=== PATIENT | female | born 1990 | race African-American/Black ===

== ENCOUNTER 2023-04-07 01:57 | Emergency (ER) | payer OTHER, SELFPAY ==
--- NOTE | 2023-04-07 02:10 | ED.ALCOHOL ---
HPI - Alcohol General Chief Complaint: ETOH/Substance Use Stated Complaint: Etoh Time Seen by Provider: 04/07/23 02:04 Source: patient Mode of arrival: EMS Limitations: no limitations History of Present Illness HPI narrative: Patient comes to the emergency room via EMS for alcohol intoxication. According to the patient, she was walking home, patient found her walking and called EMS and they asked her to come to the emergency room to get ?checked out? patient came voluntarily. On arrival, patient states that she feels well, admits to drinking alcohol, denies drug use, denies any injuries, no falls. Patient states she feels well and declines any further medical tests or treatment. Related Data Allergies Allergy/AdvReac Type Severity Reaction Status Date / Time latex [LATEX] Allergy Unknown RASH Unverified 06/25/20 15:59 latex Allergy Unknown hives Uncoded 03/16/15 00:00 Review of Systems Review of Systems: Constitutional : No Weight loss, No Fever, No Chills, No Night Sweats, No Fatigue, No Malaise ENT/Mouth : No Hearing loss, No Ear Pain, No Nasal Congestion, No Sinus Pain, No Hoarseness, No sore throat, No Rhinorrhea, No Swallowing Difficulty Eyes: No Eye Pain, No Swelling, No Redness, No Foreign Body, No Discharge, No Vision Changes Cardiovascular : No Chest Pain, No SOB, No Dyspnea on Exertion, No Orthopnea, No Edema, No Palpitations Respiratory : No Cough, No Sputum, No Wheezing, No Smoke Exposure, No Dyspnea Gastrointestinal : No Nausea, No Vomiting, No Diarrhea, No Constipation, No abdominal Pain, No Hematochezia, No Melena Genitourinary : no irregular bleeding, No Dysuria, No Urinary Frequency, No Hematuria, No Urinary Incontinence, No Urgency, No Flank Pain, No Urinary Flow Changes, No Hesitancy Musculoskeletal : No joint pain, No Myalgias, No Joint Swelling Skin : No Skin Lesions, No rash Neuro : No Weakness, No Numbness, No Paresthesias, No Loss of Consciousness, No Dizziness, No Headache Psych : No Anxiety/Panic, No Depression, No SI/HI/AH/VH, admits to drinking alcohol Heme/Lymph: No Bruising, No Bleeding,No Lymphadenopathy Endocrine : No Polyuria, No Polydipsia, No Temperature Intolerance Physical Exam ED Vital Signs: Vital Signs - 24 hr 04/07/23 02:11 Temperature 100.5 F H Pulse Rate 126 H Respiratory Rate 16 Blood Pressure 156/94 H Pulse Oximetry 93 Oxygen Delivery Method Room Air BMI result Body Mass Index 24.4 Const Other: Appearance: Alert. Oriented X3. No acute distress. Patient is clinically sober Eyes: Pupils equal, round and reactive to light. ENT: Pharynx normal. Neck: Normal inspection. Neck supple. No lymph nodes noted. No crepitus CVS: Normal heart rate and rhythm. Pulses normal. Normal S1 and S2 Respiratory: No respiratory distress. Breath sounds normal. No Wheezing. No rales Abdomen: Soft and nontender. No rigidity. No distention. Skin: Skin warm and dry. Normal skin color. Normal skin turgor. Extremities: No lower extremity edema. No Lacerations. No Rash Neuro: Oriented X 3. No motor deficit. No sensory deficit. Moving all extremities. No slurred speech. CN 2 through 12 grossly intact. Patient is ambulatory by herself, steady gait Psych: calm, cooperative, normal affect, able to hold coherent conversation Course Course Course Narrative: -patient is coherent, alert and oriented x3, steady gait unassisted. -patient denies suicidal or homicidal ideation. -patient admits to drinking alcohol but is clinically sober. -patient declining any lab work, requesting to be discharged as she needs to go home to rest and then go to work Medical Decision Making Medical Decision Making MDM Narrative: -patient has a fever of 100.5, heart rate 126 -patient denies any URI or UTI symptoms, no abdominal pain. Patient states that she is aware that were telling her that she likely has an infection, but declined any further workup. -as mentioned above, patient is alert and oriented x3, no suicidal ideation, coherent, clinically sober. No recent to Section 12 the patient -per patient's request, patient being discharged Differential Diagnosis Differential Diagnoses: The differential diagnosis associated with the presentation includes (Alcohol intoxication, substance abuse) Discharge Plan Discharge Clinical Impression: Alcohol intoxication Patient Disposition: Home, Self-Care Instructions: Alcohol Intoxication (ED) Additional Instructions: Please follow-up with your primary care physician tomorrow. If you have any worsening or new symptoms, please return to the emergency room or call 911
[2023-04-07 02:11] VITALS: BP 156/94; BP 178/78; PULSE 126; PULSE 132; RESP 16; TEMP 38.1; O2SAT 93; O2SAT 96; BMI 24.4
--- NOTE | 2023-04-07 02:19 | PC.NURSE ---
pt refusing any care stating she is leaving because there is nothing wrong with me pt stating she can walk, talk, make decisions with no issues and she does not need to be here. provider aware of pt vital signs at time of discharge . provider told patient she has a fever and should stay in the hospital, patient responds no i don't it is just hot outside pt A&Ox4, speaking clear full sentences and ambulating with steady gait at time of discharge. MD aware
== END 2023-04-07 02:22 | disposition home or self-care (01) ==
LOC: HO.ED 02:17
PROVIDERS: Emergency Provider Emergency Medicine
DX: F10.920 Alcohol use, unspecified with intoxication, uncomplicated (principal); Y90.9 Presence of alcohol in blood, level not specified; R50.9 Fever, unspecified
CPT/HCPCS: 99282

== ENCOUNTER 2024-06-10 17:13 | Inpatient (IN) | payer OTHER, SELFPAY ==
--- NOTE | ~2024-06-10 | XR_ITS ---
EXAMINATION: XR CHEST CLINICAL INFORMATION: Chest pain. Cough COMPARISON: 06/10/2024 TECHNIQUE: Frontal view of the chest was obtained. FINDINGS: Mild patchy peribronchial opacities previously seen are less conspicuous less reflective of slight improvement. Heart and pulmonary vessels normal. XR/XR chest 1V IMPRESSION: Interval improvement from prior study. Electronically signed by: Rodolfo Will MD 06/12/2024 10:55 AM EDT
--- NOTE | ~2024-06-10 | XR_ITS ---
EXAMINATION: PORTABLE CHEST 1 VIEW CLINICAL INFORMATION: ?pna, OD, febrile. COMPARISON: 01/01/2018. TECHNIQUE: Portable frontal view of the chest was obtained. FINDINGS: The lungs are well expanded. Mild peribronchial cuffing bilaterally suggesting reactive or small airways disease. Subtle increased markings at the left base more likely due to atelectasis. I do not appreciate any obvious obscuration of the hemidiaphragm or heart border. No other definitive effusion, edema, or pneumothorax. Cardiac and mediastinal silhouettes are within normal limits for technique. No acute bony abnormality seen. XR/XR chest 1V IMPRESSION: Mild peribronchial cuffing suggesting underlying reactive or small airways disease. Minimal increased markings at the left base more likely due to atelectasis. Electronically signed by: Denny Arevalo MD 06/10/2024 08:14 PM EDT
[2024-06-10 17:20] VITALS: BP 132/90; PULSE 111; O2SAT 98
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
--- NOTE | 2024-06-10 17:32 | PC.NURSE ---
Sepsis alert called
--- NOTE | 2024-06-10 17:39 | PC.NURSE ---
Pt. refusing blood draws. COMMUNITY LEADER aware
--- NOTE | 2024-06-10 17:48 | PC.NURSE ---
Pt. still refusing blood draw. MACHINE OPERATOR HELPER made aware again
[2024-06-10 18:02] VITALS: PULSE 97; RESP 18; TEMP 38.7; O2SAT 96; BMI 26.5
--- NOTE | 2024-06-10 18:08 | PC.NURSE ---
Still unable to gain access. Dudley COPELAND attempting at this time
--- NOTE | 2024-06-10 18:13 | PC.NURSE ---
Second RN unable to gain access or obtain bloodwork. Javier Goetz NP aware
[2024-06-10] MEDS: Acetaminophen 325 MG TABLET 975 MG PO (18:19)
[2024-06-10] MEDS: 0.9 % Sodium Chloride 1,000 ML 999 ML IV (18:19)
--- NOTE | 2024-06-10 18:20 | PC.NURSE ---
Pt. again refusing blood draw attempts
--- NOTE | 2024-06-10 18:25 | MHC.EDTECH ---
Asked by mail distributor/Bedside RN to assist with lab draw as patient is a difficult stick d/t hx of IVDU. Attempted to draw patient , however pt adamantly refused to have blood drawn. Asked pt to proceed multiple times expressing that her refusal would delay her care since she is a sepsis protocol and requires broad spectrum abx which cannot be given until lab have been drawn. Pt remains uncooperative and refused to proceed with the blood drawn. Provider Fabiola Kenney was informed about the situation and discussed we may need to return to the patient room and persuade patient with additional staff present. At this time, d/t the continued refusal/lack of cooperation on behalf of the pt, I do not foresee the chronological milestones for sepsis protocol being met. Again, provider Javier Wright and bedside RN Javier Pennington along with conveyor line battery charger Jason Mccormick are aware of the situation.
[2024-06-10 18:40] LABS: Influenza A PCR NEGATIVE (Negative); Influenza B PCR NEGATIVE (Negative); Resp Syncy Virus RNA Qual PCR NEGATIVE (Negative); SARS COV2 PCR INHOUSE NEGATIVE (Negative)
[2024-06-10 19:13] VITALS: BP 136/77; PULSE 87; RESP 18
[2024-06-10] MEDS: Piperacillin Sodium/Tazobactam 3.375 GM in 0.9 % Sodium Chloride 50 ML IV (19:16)
--- NOTE | 2024-06-10 19:16 | PC.NURSE ---
Assumed care of pt. Pt lying on stretcher, refusing vitals and further assessment including labbs. IV patent, IV Abx started despite lack of blood cultures, provider aware and OKd
--- NOTE | 2024-06-10 21:48 | MHC.EDTECH ---
Pt continues to refuse care from staff
--- NOTE | 2024-06-10 21:58 | PC.NURSE ---
Pt continuing to refuse labs, further assessments beyond telemetry monitor. Provider aware.
--- NOTE | 2024-06-10 23:21 | PC.NURSE ---
After conversation with this RN and provider, pt agreed to allow installation of US guided IV and lab work. See charting for details of IV.
[2024-06-10 23:22] LABS: MANUAL DIFF FLAG NO
[2024-06-10 23:23] LABS: Hematocrit 32.1 % (37.0-47.0); Hemoglobin 10.2 g/dl (12.0-16.0); Imm Gran Abs Auto 0.03 X10*3/uL (0.00-0.03); Imm Gran Pct Auto 0.8 % (0.0-0.4); Lymphocytes Absolute Auto 0.9 X10*3/uL (1.2-4.9); Lymphocytes Percent Auto 25.6 % (20-40); Mean Corpuscular HGB Conc 31.8 g/dl (31.0-35.0); Mean Corpuscular Hemoglobin 26.3 pg (27.0-33.0); Mean Corpuscular Volume 82.7 fL (80.0-98.0); Mean Platelet Volume 10.4 fL (9.4-12.3); Monocytes Absolute Auto 0.3 X10*3/uL (0.1-1.2); Monocytes Percent Auto 8.9 % (2-11); Neutrophils Absolute Auto 2.3 x10*3/uL (2.0-8.3); Neutrophils Percent Auto 64.7 % (45-73); Platelet Count 322 X10*3/uL (160-400); Red Blood Count 3.88 X10*6/uL (4.20-5.50); Red Cell Distribution Width 14.6 % (11.0-16.0); White Blood Count 3.6 X10*3/uL (4.8-10.8)
[2024-06-10 23:34] LABS: Lactic Acid 0.6 mmol/L (0.5-2.0)
[2024-06-10 23:39] LABS: Alanine Aminotransferase 16 U/L (0-31); Albumin Level 3.5 g/dL (3.5-5.0); Alkaline Phosphatase 55 U/L (39-117); Anion Gap 11 (12-20); Aspartate Amino Transferase 19 U/L (5-31); Bilirubin Total 0.3 mg/dL (0.0-1.0); Blood Urea Nitrogen 6 mg/dL (9-16); Calcium 8.4 mg/dL (8.4-10.2); Carbon Dioxide 24 mmol/L (22-29); Chloride 109 mmol/L (96-108); Creatinine Clr Calc Pharmacy 128.2; Estimated Glomerular Filt Rate > 60; Glucose Random 106 mg/dL (60-115); Potassium 3.1 mmol/L (3.3-5.1); Sodium 141 mmol/L (135-145); Total Protein 6.8 g/dL (6.5-8.0)
[2024-06-11] VITALS: PULSE 65; RESP 18; TEMP 36.9; O2SAT 98
[2024-06-11] MEDS: Potassium Chloride ER 20 MEQ TAB.ER.PRT 40 MEQ PO (00:03)
[2024-06-11] MEDS: vancomycin/NS 2,000 MG/500 ML PLAST..BAG 250 MG IV (01:19)
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
--- NOTE | 2024-06-11 02:38 | MHC.EDTECH ---
belongings list not completed during traveler changer process and currently pt is being admitted. This tech does not know of items/clothing pt arrived with and cannot complete a belonging list.
[2024-06-11 04:17] LABS: MANUAL DIFF FLAG NO
[2024-06-11 04:19] LABS: Basophils Percent Auto 0.3 % (0-2); Eosinophils Percent Auto 0.3 % (0-4); Hematocrit 30.1 % (37.0-47.0); Hemoglobin 9.6 g/dl (12.0-16.0); Imm Gran Abs Auto 0.02 X10*3/uL (0.00-0.03); Imm Gran Pct Auto 0.6 % (0.0-0.4); Lymphocytes Absolute Auto 1.3 X10*3/uL (1.2-4.9); Lymphocytes Percent Auto 40.6 % (20-40); Mean Corpuscular HGB Conc 31.9 g/dl (31.0-35.0); Mean Corpuscular Hemoglobin 26.5 pg (27.0-33.0); Mean Corpuscular Volume 83.1 fL (80.0-98.0); Mean Platelet Volume 10.4 fL (9.4-12.3); Monocytes Absolute Auto 0.5 X10*3/uL (0.1-1.2); Monocytes Percent Auto 14.3 % (2-11); Neutrophils Absolute Auto 1.4 x10*3/uL (2.0-8.3); Neutrophils Percent Auto 43.9 % (45-73); Platelet Count 309 X10*3/uL (160-400); Red Blood Count 3.62 X10*6/uL (4.20-5.50); Red Cell Distribution Width 14.6 % (11.0-16.0); White Blood Count 3.2 X10*3/uL (4.8-10.8)
[2024-06-11 04:32] LABS: Anion Gap 9 (12-20); Blood Urea Nitrogen 6 mg/dL (9-16); Calcium 8.2 mg/dL (8.4-10.2); Carbon Dioxide 24 mmol/L (22-29); Chloride 111 mmol/L (96-108); Creatinine Clr Calc Pharmacy 130.2; Estimated Glomerular Filt Rate > 60; Glucose Random 90 mg/dL (60-115); Potassium 3.3 mmol/L (3.3-5.1); Sodium 141 mmol/L (135-145)
--- NOTE | 2024-06-11 06:55 | MHC.EDTECH ---
Pt continues to refuse vital signs at this time
[2024-06-11] MEDS: 0.9 % Sodium Chloride Flush 3 ML SYRINGE IVFLUSH ×3 (07:28→21:27)
[2024-06-11 07:30] VITALS: PULSE 66; RESP 18; O2SAT 98
--- NOTE | 2024-06-11 08:13 | PC.NURSE ---
Resumed care of pt at 0700. Pt resting in bed quietly, respirations even and unlabored, no increased wob/sob noted. Pt refusing BP and temp, NSR on senior it project manager HR-60s. Pt breakfast tray at bedside, pt aware of plan to admit. Call agee within reach, all needs met at this time.
--- NOTE | 2024-06-11 08:28 | PHA.PROG ---
Admission Date/Time: June 11, 2024 02:13 Indication: Bacteremia Weight in k.7 kg Adjusted body weight in Kg: [place] body weight in Kg: Obesity Dosing Indication % IBW: BMI26.5 Serum Creatinine - Last 168 Hours 06/10/24 06/11/24 23:17 04:09 Creatinine 0.66 0.65 Estimated CrCl and GFR - Last 168 Hours 06/10/24 06/11/24 23:17 04:09 Estim Creat Clear Calc 128.2 130.2 Estimated GFR > 60 > 60 Vancomycin Loading Dose: 2000 mg x1 Current Vancomycin Dosing Regimen: 1500 mg Q12H Vancomycin Monitoring using AUC goal of 400 - 600 range with trough as surrogate marker: 563 Date and Time for next Vancomycin Level to be drawn: 06/12 @1200 Pharmacist Comments on Vancomycin Plan: predicted trough 16 Vancomycin dosing will take advantage of [employer] as a clinical decision support tool that uses Bayesian modeling to calculate individual patient's pharmacokinetic parameters and forecast the patient's drug concentration time course with the target goal AUC 24 range of 400 - 600 mg/L/hr.
--- NOTE | 2024-06-11 09:56 | PC.NURSE ---
Pt ambulated to bathroom with steady gait, UA obtained. Pt bed linens changed, sitting up at the side of bed eating breakfast. Pt a/ox4, respirations even and unlabored, no increased wob/sob, lung sounds cta bilaterally, no wheezes/rhonci heard, s1 and s2 heard, pt on monitoring analyst NSR, HR- 60s, abdomen soft, non-tender on palpation. Pt c/o no pain at this time. [facility]
[2024-06-11 09:58] LABS: UPreg QC Valid YES; Urine Pregnancy NEGATIVE (NEGATIVE)
[2024-06-11 10:01] LABS: Amphetamine Screen Urine Not Detected (Not Detect); Barbiturates, Urine Not Detected (Not Detect); Benzodiazepines Screen Urine Not Detected (Not Detect); Buprenorphine Scr Not Detected (Not Detect); Cannabinoid Screen Urine Not Detected (Not Detect); Cocaine Screen Urine POSITIVE (Not Detect); Fentanyl, urine POSITIVE (Not Detect); Methadone Screen, Urine Not Detected (Not Detect); Opiate Screen Urine POSITIVE (Not Detect); Oxycodone Screen Urine Not Detected (Not Detect); Phencyclidine Screen Urine Not Detected (Not Detect)
[2024-06-11 10:02] LABS: Appearance Urine Cloudy; Color Urine Yellow; Glucose Urine UA Negative (Negative); Leukocyte Esterase Urine Moderate (2+) (Negative); Nitrite Urine Negative (Negative); PH 6.5 (5.0-9.0); Specific Gravity - Urine 1.025 (1.005-1.025); UMIC TRIGGER UACC YES; Urine Blood Negative (Negative); Urine Ketones Negative (Negative); Urine Protein Trace mg/dL (Neg-Trace)
[2024-06-11 10:04] LABS: Bacteria Urine 3+ (None Seen); RBC Urine 0-2 /HPF (0-2); UACC Culture Trigger YES
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
[2024-06-11] MEDS: methADONE HCl 20 MG/2 ML ORAL.CONC 30 MG PO (10:29)
[2024-06-11 10:30] VITALS: BP 123/59; PULSE 76; RESP 14; TEMP 36.8; O2SAT 98
--- NOTE | 2024-06-11 10:44 | PHA.MEDREC ---
Addendum entered by Piyush Cid 06/11/24 10:45: Verified by [facility] Original Note: Pharmacy Consult ? Medication Reconciliation Pharmacy has completed the medication reconciliation. Patient confirmed she is taking nothing for medications at home.
--- NOTE | 2024-06-11 11:40 | PM.EVENT ---
Event Note Date of Service: 06/11/24 Event Note: Chart reviewed patient examined. Agree with H&P and plan as outlined Time Spent With Patient Time: Total time managing care of this patient today ____ minutes.
--- NOTE | 2024-06-11 13:25 | HO.SUDE ---
Pt presented in the ED for a post heroin overdose evaluation. Was administered 12 mg Narcan before she became conscious prior to her arrival . Claimed to be using ?a lot? - 2-3 bundles of heroin daily. Last EtOH (age of onset: 21 yrs), crack cocaine (age of onset: 20 yrs), and heroin/fentanyl (age of onset: 23 yrs) use was yesterday when she had 1 pint of EtOH, $20 worth of crack cocaine, and 2-3 bundles heroin. Pt is treatment seeking - interested in detox. Frequency of use is daily (heroin) or every other day (crack, EtOH, benzos). Pt did not recall where/when her last substance use treatment was but does endorse having been in treatment before. She was restarted on methadone in the ED. Pt reports she is ?schizophrenic? and has a history of self-harm/SI over 5 years ago. Pt denies having a family history of substance use.
[2024-06-11] MEDS: vancomycin HCL 1,500 MG in 0.9 % Sodium Chloride 500 ML 333.33 MG IV (13:58)
--- NOTE | 2024-06-11 14:15 | MHC.RECOVRN ---
Met with pt to follow up after methadone administration this morning. Pt reports feeling better, however, reports still feeling hot/cold. Pt would like to continue methadone titration. Denies other questions or concerns for t/w.
[2024-06-11 17:26] VITALS: BP 133/78; PULSE 71; RESP 20; TEMP 36.9; O2SAT 98
[2024-06-11] MEDS: methADONE HCl 20 MG/2 ML ORAL.CONC 10 MG PO (19:27)
[2024-06-11 20:25] VITALS: BP 135/81; PULSE 79; RESP 15; TEMP 36.8; O2SAT 99
--- NOTE | 2024-06-11 20:52 | MHC.EDTECH ---
Patients belongings are in [facility]
[2024-06-11 21:25] VITALS: BMI 27.3
[2024-06-11 21:43] VITALS: BP 138/80; PULSE 70; RESP 18; TEMP 36.6; O2SAT 100
[2024-06-12] MEDS: vancomycin HCL 1,500 MG in 0.9 % Sodium Chloride 500 ML 333.33 MG IV (01:28)
[2024-06-12 03:07] VITALS: BP 131/78; PULSE 78; RESP 18; TEMP 36.5; O2SAT 99
[2024-06-12 07:26] VITALS: BP 140/87; PULSE 75; RESP 16; TEMP 36.3; O2SAT 100
[2024-06-12] MEDS: 0.9 % Sodium Chloride Flush 3 ML SYRINGE IVFLUSH ×2 (07:33→15:35)
[2024-06-12] MEDS: methADONE HCl 20 MG/2 ML ORAL.CONC 50 MG PO (07:34)
[2024-06-12] MEDS: Acetaminophen 325 MG TABLET 650 MG PO (07:36)
--- NOTE | 2024-06-12 07:44 | PC.NURSE ---
PATIENT C/O ABDOMINAL PAIN dR. TORO NOTIFIED
[2024-06-12 07:46] LABS: Creatinine Clr Calc Pharmacy 134.1; Estimated Glomerular Filt Rate > 60
[2024-06-12 08:15] LABS: Basophils Percent Auto 0.9 % (0-2); Eosinophils Absolute Auto 0.1 X10*3/uL (0.0-0.4); Eosinophils Percent Auto 2.3 % (0-4); Hematocrit 34.2 % (37.0-47.0); Hemoglobin 11.3 g/dl (12.0-16.0); Imm Gran Abs Auto 0.03 X10*3/uL (0.00-0.03); Imm Gran Pct Auto 0.9 % (0.0-0.4); Lymphocytes Absolute Auto 1.5 X10*3/uL (1.2-4.9); Lymphocytes Percent Auto 42.3 % (20-40); Mean Corpuscular Hemoglobin 26.6 pg (27.0-33.0); Mean Corpuscular Volume 80.5 fL (80.0-98.0); Mean Platelet Volume 11.3 fL (9.4-12.3); Monocytes Absolute Auto 0.4 X10*3/uL (0.1-1.2); Monocytes Percent Auto 12.8 % (2-11); Neutrophils Absolute Auto 1.4 x10*3/uL (2.0-8.3); Neutrophils Percent Auto 40.8 % (45-73); Platelet Count 289 X10*3/uL (160-400); Red Blood Count 4.25 X10*6/uL (4.20-5.50); Red Cell Distribution Width 14.6 % (11.0-16.0); White Blood Count 3.4 X10*3/uL (4.8-10.8)
--- NOTE | 2024-06-12 11:01 | HO.PM.IMPN ---
Subjective Subjective Date of Service: 06/12/24 Interval History: Continues to complain of vague abdominal pain sweats consistent with opiate withdrawal Review of Systems Denies chest pain Denies shortness of breath Denies nausea vomiting diarrhea Admits to abdominal pain which is diffuse and nonfocal Physical Exam Vital Signs: Vital Signs: Last Vital Signs Temp 97.4 F 06/12/24 07:26 Pulse 75 06/12/24 07:26 Resp 16 06/12/24 07:26 BP 140/87 H 06/12/24 07:26 Pulse Ox 100 06/12/24 07:26 O2 Del Method Room Air 06/12/24 07:26 BMI result Body Mass Index 27.3 Const: Other: Awake alert no acute distress Resp: Other: Clear to auscultation bilaterally no rales rhonchi or wheezes Cardio: Other: No S4; positive S1-S2; no S3 murmurs rubs or gallops Neuro: Other: Cranial nerves 2-12 grossly intact as tested. Motor is 5/5 all extremities. Sensation is intact Extrem: Other: No edema bilaterally Objective Data Active Medications Acetaminophen (Acetaminophen 325 Mg Tablet) 650 mg PO Q6H PRN PRN Reason: Pain, Mild (Pain Scale 1-3), fever or headache Last Admin: 06/12/24 07:36 Dose: 650 mg Documented By: SARI Calcium Carbonate (Calcium Carbonate 750 Mg Tab.Chew) 750 mg PO Q4H PRN PRN Reason: Heartburn Enoxaparin Sodium (Enoxaparin Sodium 40 Mg/0.4 Ml Syringe) 40 mg SUBCUT Q24H [facility] Last Admin: 06/12/24 01:30 Dose: Not Given Documented By: CHRISTY Non-Admin Reason: Patient Refused Vancomycin HCl 1,500 mg/ (Sodium Chloride) 500 mls @ 333.333 mls/hr IV Q12H [facility] Last Infusion: 06/12/24 03:02 Dose: Infused Documented By: CHRISTY Magnesium Hydroxide (Milk Of Magnesia 30 Ml Oral.Susp) 30 ml PO DAILY PRN PRN Reason: Constipation Melatonin (Melatonin 3 Mg Tablet) 6 mg PO BEDTIME PRN PRN Reason: Insomnia Methadone HCl (Methadone Hcl 20 Mg/2 Ml Oral.Conc) 50 mg PO DAILY [facility] Last Admin: 06/12/24 07:34 Dose: 50 mg Documented By: SARI Co-signed By: ZECHARIAH Ondansetron HCl (Ondansetron Hcl 4 Mg/2 Ml Vial) 4 mg IVPUSH Q8H PRN PRN Reason: Nausea and Vomiting Pharmacy Consult (Consult Rx Vancomycin Dosing) 1 each MISCELLANE DAILY PRN PRN Reason: Consult order Sodium Chloride (0.9 % Sodium Chloride Flush 3 Ml Sy[facility]) [facility] Last Admin: 06/12/24 07:33 Dose: 3 ml Documented By: SARI Labs 06/12/24 08:04 06/12/24 07:14 Labs: Laboratory Results - last 24 hr 06/12/24 06/12/24 07:14 08:04 MCV 80.5 MCH 26.6 L MCHC 33.0 RDW 14.6 Plt Count 289 MPV 11.3 Immature Gran % (Auto) 0.9 H Neut % (Auto) 40.8 L Lymph % (Auto) 42.3 H [place] % (Auto) 12.8 H Eos % (Auto) 2.3 Baso % (Auto) 0.9 Lymph # (Auto) 1.5 [place] # (Auto) 0.4 Eos # (Auto) 0.1 Baso # (Auto) 0.0 Abs Immat Gran (auto) 0.03 Absolute Neuts (auto) 1.4 L Absolute Nucleated RBC 0.000 Nucleated RBC % (auto) 0.0 Estim Creat Clear Calc 134.1 Estimated GFR > 60 Microbiology Microbiology Results: Microbiology 06/10/24 23:17 Blood Culture - Preliminary Blood - Venous No growth after 24 hours. 06/10/24 23:17 Blood Culture - Preliminary Blood - Venous No growth after 24 hours. Assessment and Plan (1) SIRS (systemic inflammatory response syndrome): Status: Acute (2) IV drug user: Status: Acute Plan This is a 34-year-old female with pertinent history of polysubstance IV drug use disorder who was brought to the emergency department for evaluation of altered mentation in the setting of overdose. 1.SIRS+ (resolved) -blood cultures negative times 24 hours; urine pending -continue empiric vancomycin pending culture results 2.Acute toxic encephalopathy -resolved 3.Polysubstance IV drug use disorder -continue methadone adjust as per addiction Medicine -oxycodone for breakthrough Lovenox Full code Will require ongoing hospitalization for IV vancomycin pending culture review Quality Stroke Does the patient have a stroke diagnosis?: No VTE Prior VTE?: No VTE Risk Level:: Medical - moderate - high VTE Device Contraindication: Treatment Not Indicated VTE Drug Contraindication: N/A - Med Ordered
--- NOTE | 2024-06-12 11:51 | PC.NURSE ---
Patient refused vanco trough lab draw,explained need for test but patient still refused,pt requesting her antibiotic to be changed,Dr. Manzanares notified
[2024-06-12 12:00] VITALS: BP 128/60; PULSE 61; RESP 14; TEMP 36.6; O2SAT 98
--- NOTE | 2024-06-12 12:14 | MHC.CM.PN ---
CM MET WITH PT AT BEDSIDE. LIVES WITH OTHERS. PT IS INDEPENDENT, NO SERVICES AT HOME. +HCP ON FILE AND VERIFIED. PCP DR. CABRAL. DP: HOME, NO SERVICES IS THE GOAL. PT WILL NEED ASSIST WITH A RIDE HOME, C SHUTTLE/LYFT RIDE. CM WILL CONTINUE TO FOLLOW FOR ANY CHANGE TO DC PLAN/NEEDS.
[2024-06-12] MEDS: Amoxicillin/Potassium Clav 875 MG TABLET PO ×2 (12:37→20:11)
[2024-06-12 15:50] VITALS: PULSE 62; RESP 18; TEMP 36.6; O2SAT 98
--- NOTE | 2024-06-12 17:20 | P.PNADD_ITS ---
Subjective Subjective Date of Service: 06/12/24 Reason For Visit: AMS Interim History: Patient seen in follow up Methadone initiated yesterday with positive effect Substance use history obtained by customs guard --notes reviewed Patient seen in room 353. Awake, alert, minimal responses to questions. Reporting methadone has been helpful, and would like to continue dose titration Requesting medication for sleep--states that at one time she took trazadone and it was helpful. Reporting chills and body aches No other sx of withdrawal reported and none observed Review of Systems Constitutional: Reports as per HPI Mental Status Exam Mental Status Exam Patient Appearance: Appropriate Level of Consciousness: Awake and Appropriate Patient Behavior: Appropriate and Passive Mood Description: Calm Affect Description: Blunted Diagnostics Vital Signs (24Hr): Vital Signs - 24 hr 06/11/24 17:26 06/11/24 20:25 06/11/24 21:43 Temperature 98.5 F 98.2 F 97.8 F Pulse Rate 71 79 70 Respiratory Rate 20 15 18 Blood Pressure 133/78 135/81 138/80 Pulse Oximetry 98 99 100 Oxygen Delivery Method Room Air Room Air Room Air 06/12/24 03:07 06/12/24 07:26 06/12/24 12:00 Temperature 97.7 F 97.4 F 97.8 F Pulse Rate 78 75 61 Respiratory Rate 18 16 14 Blood Pressure 131/78 140/87 H 128/60 Pulse Oximetry 99 100 98 Oxygen Delivery Method Room Air Room Air Room Air 06/12/24 15:50 Temperature 97.9 F Pulse Rate 62 Respiratory Rate 18 Blood Pressure Pulse Oximetry 98 Oxygen Delivery Method BMI result Body Mass Index 27.3 Labs 06/12/24 08:04 06/12/24 07:14 Labs: Laboratory Results - last 48 hr 06/10/24 06/10/24 06/11/24 17:57 23:17 04:09 WBC 3.6 L 3.2 L RBC 3.88 L 3.62 L Hgb 10.2 L 9.6 L Hct 32.1 L 30.1 L MCV 82.7 83.1 MCH 26.3 L 26.5 L MCHC 31.8 31.9 RDW 14.6 14.6 Plt Count 322 309 MPV 10.4 10.4 Immature Gran % (Auto) 0.8 H 0.6 H Neut % (Auto) 64.7 43.9 L Lymph % (Auto) 25.6 40.6 H [place] % (Auto) 8.9 14.3 H Eos % (Auto) 0.0 0.3 Baso % (Auto) 0.0 0.3 Lymph # (Auto) 0.9 L 1.3 [place] # (Auto) 0.3 0.5 Eos # (Auto) 0.0 0.0 Baso # (Auto) 0.0 0.0 Abs Immat Gran (auto) 0.03 0.02 Absolute Neuts (auto) 2.3 1.4 L Absolute Nucleated RBC 0.000 0.000 Nucleated RBC % (auto) 0.0 0.0 Sodium 141 141 Potassium 3.1 L 3.3 Chloride 109 H 111 H Carbon Dioxide 24 24 Anion Gap 11 L 9 L BUN 6 L 6 L Creatinine 0.66 0.65 Estim Creat Clear Calc 128.2 130.2 Estimated GFR > 60 > 60 Random Glucose 106 90 Lactic Acid 0.6 Calcium 8.4 8.2 L Total Bilirubin 0.3 AST 19 ALT 16 Alkaline Phosphatase 55 Total Protein 6.8 Albumin 3.5 Urine Color Urine Appearance Urine pH Ur Specific [place] Urine Protein Urine Glucose (UA) Urine Ketones Urine Blood Urine Nitrite Ur Leukocyte Esterase Urine RBC Urine WBC Ur Squamous Epith Cells Urine Bacteria Hyaline Casts Urine Test Urine Opiates Screen Ur Buprenorphine Scrn Ur Oxycodone Screen Urine Methadone Screen Urine Fentanyl Screen Ur Barbiturates Screen Ur Phencyclidine Scrn Ur Amphetamines Screen U Benzodiazepines Scrn Urine Cocaine Screen U Marijuana (THC) Screen Influenza Type A (PCR) NEGATIVE Influenza Type B (PCR) NEGATIVE RSV RNA Qual (PCR) NEGATIVE SARS-CoV-2 RNA (RT-PCR) NEGATIVE 06/11/24 06/11/24 06/12/24 09:43 09:44 07:14 WBC RBC Hgb Hct MCV MCH MCHC RDW Plt Count MPV Immature Gran % (Auto) Neut % (Auto) Lymph % (Auto) [place] % (Auto) Eos % (Auto) Baso % (Auto) Lymph # (Auto) [place] # (Auto) Eos # (Auto) Baso # (Auto) Abs Immat Gran (auto) Absolute Neuts (auto) Absolute Nucleated RBC Nucleated RBC % (auto) Sodium Potassium Chloride Carbon Dioxide Anion Gap BUN Creatinine 0.64 Estim Creat Clear Calc 134.1 Estimated GFR > 60 Random Glucose Lactic Acid Calcium Total Bilirubin AST ALT Alkaline Phosphatase Total Protein Albumin Urine Color Yellow Urine Appearance Cloudy Urine pH 6.5 Ur Specific [place] 1.025 Urine Protein Trace Urine Glucose (UA) Negative Urine Ketones Negative Urine Blood Negative Urine Nitrite Negative Ur Leukocyte Esterase Moderate (2+) H Urine RBC 0-2 Urine WBC 11-20 H Ur Squamous Epith Cells 11-20 Urine Bacteria 3+ Hyaline Casts 3-5 Urine Test NEGATIVE Urine Opiates Screen POSITIVE H Ur Buprenorphine Scrn Not Detected Ur Oxycodone Screen Not Detected Urine Methadone Screen Not Detected Urine Fentanyl Screen POSITIVE H Ur Barbiturates Screen Not Detected Ur Phencyclidine Scrn Not Detected Ur Amphetamines Screen Not Detected U Benzodiazepines Scrn Not Detected Urine Cocaine Screen POSITIVE H U Marijuana (THC) Screen Not Detected Influenza Type A (PCR) Influenza Type B (PCR) RSV RNA Qual (PCR) SARS-CoV-2 RNA (RT-PCR) 06/12/24 08:04 WBC 3.4 L RBC 4.25 Hgb 11.3 L Hct 34.2 L MCV 80.5 MCH 26.6 L MCHC 33.0 RDW 14.6 Plt Count 289 MPV 11.3 Immature Gran % (Auto) 0.9 H Neut % (Auto) 40.8 L Lymph % (Auto) 42.3 H [place] % (Auto) 12.8 H Eos % (Auto) 2.3 Baso % (Auto) 0.9 Lymph # (Auto) 1.5 [place] # (Auto) 0.4 Eos # (Auto) 0.1 Baso # (Auto) 0.0 Abs Immat Gran (auto) 0.03 Absolute Neuts (auto) 1.4 L Absolute Nucleated RBC 0.000 Nucleated RBC % (auto) 0.0 Sodium Potassium Chloride Carbon Dioxide Anion Gap BUN Creatinine Estim Creat Clear Calc Estimated GFR Random Glucose Lactic Acid Calcium Total Bilirubin AST ALT Alkaline Phosphatase Total Protein Albumin Urine Color Urine Appearance Urine pH Ur Specific [place] Urine Protein Urine Glucose (UA) Urine Ketones Urine Blood Urine Nitrite Ur Leukocyte Esterase Urine RBC Urine WBC Ur Squamous Epith Cells Urine Bacteria Hyaline Casts Urine Test Urine Opiates Screen Ur Buprenorphine Scrn Ur Oxycodone Screen Urine Methadone Screen Urine Fentanyl Screen Ur Barbiturates Screen Ur Phencyclidine Scrn Ur Amphetamines Screen U Benzodiazepines Scrn Urine Cocaine Screen U Marijuana (THC) Screen Influenza Type A (PCR) Influenza Type B (PCR) RSV RNA Qual (PCR) SARS-CoV-2 RNA (RT-PCR) Imaging Radiology Impressions: ITS Impressions Chest X-Ray 06/10/24 17:44 IMPRESSION: Mild peribronchial cuffing suggesting underlying reactive or small airways disease. Minimal increased markings at the left base more likely due to atelectasis. Electronically signed by: Denny Arevalo MD 06/10/2024 08:14 PM EDT RP Chest X-Ray 06/12/24 08:00 IMPRESSION: Interval improvement from prior study. Electronically signed by: Rodolfo Will MD 06/12/2024 10:55 AM EDT RP Medications Medications Current Medications Acetaminophen (Acetaminophen 325 Mg Tablet) 650 mg PO Q6H PRN PRN Reason: Pain, Mild (Pain Scale 1-3), fever or headache Last Admin: 06/12/24 07:36 Dose: 650 mg Amoxicillin/Clavulanate Potassium (Amoxicillin/Potassium Clav 875 Mg Tablet) 875 mg PO BID [facility] Last Admin: 06/12/24 12:37 Dose: 875 mg Calcium Carbonate (Calcium Carbonate 750 Mg Tab.Chew) 750 mg PO Q4H PRN PRN Reason: Heartburn Enoxaparin Sodium (Enoxaparin Sodium 40 Mg/0.4 Ml Syringe) 40 mg SUBCUT Q24H [facility] Last Admin: 06/12/24 01:30 Dose: Not Given Magnesium Hydroxide (Milk Of Magnesia 30 Ml Oral.Susp) 30 ml PO DAILY PRN PRN Reason: Constipation Melatonin (Melatonin 3 Mg Tablet) 6 mg PO BEDTIME PRN PRN Reason: Insomnia Methadone HCl (Methadone Hcl 20 Mg/2 Ml Oral.Conc) 60 mg PO DAILY [facility] Ondansetron HCl (Ondansetron Hcl 4 Mg/2 Ml Vial) 4 mg IVPUSH Q8H PRN PRN Reason: Nausea and Vomiting Oxycodone HCl (Oxycodone Hcl Immed Release 5 Mg Tablet) 10 mg PO Q4H PRN PRN Reason: Pain, Moderate(Pain Scale 4-6) Sodium Chloride (0.9 % Sodium Chloride Flush 3 Ml Syringe) 3 ml IVFLUSH QSHIFT [facility] Last Admin: 06/12/24 15:35 Dose: 3 ml Trazodone HCl (Trazodone Hcl 50 Mg Tablet) 50 mg PO BEDTIME [place] Allergies Allergies Allergy/AdvReac Type Severity Reaction Status Date / Time latex [LATEX] Allergy Unknown RASH Verified 06/10/24 18:05 latex Allergy Unknown hives Uncoded 06/10/24 18:05 Assessment & Plan Assessment & Plan (1) Opioid use disorder: Status: Acute Code(s): F11.90 - Opioid use, unspecified, uncomplicated Assessment and Plan: * methadone increase to 60mg in AM * trazodone 50mg HS * please remind patient that she has PRN medications that can help with some of the sx she is reporting * will follow up in AM Total time managing care of this patient today ___25_ minutes.
[2024-06-12 20:00] VITALS: BP 128/68; PULSE 58; RESP 16; TEMP 36.2; O2SAT 99
[2024-06-12] MEDS: traZODone HCL 50 MG TABLET PO (20:11)
[2024-06-12] MEDS: oxyCODONE HCl Immed Release 5 MG TABLET 10 MG PO (20:11)
[2024-06-13] VITALS: BP 135/95; PULSE 54; RESP 16; TEMP 36; O2SAT 99
[2024-06-13] MEDS: 0.9 % Sodium Chloride Flush 3 ML SYRINGE IVFLUSH ×3 (00:36→16:06)
[2024-06-13] MEDS: Enoxaparin Sodium 40 MG/0.4 ML SYRINGE SUBCUT (02:30)
[2024-06-13] MEDS: oxyCODONE HCl Immed Release 5 MG TABLET 10 MG PO ×2 (02:33→16:04)
[2024-06-13 04:00] VITALS: BP 131/79; PULSE 56; RESP 18; TEMP 36.4; O2SAT 100
[2024-06-13 07:19] VITALS: BP 131/80; PULSE 97; RESP 16; TEMP 36.2; O2SAT 100
[2024-06-13] MEDS: methADONE HCl 20 MG/2 ML ORAL.CONC 60 MG PO (07:58)
[2024-06-13] MEDS: Amoxicillin/Potassium Clav 875 MG TABLET PO (07:58)
[2024-06-13 12:00] VITALS: BP 131/78; PULSE 67; RESP 14; TEMP 36; O2SAT 99
--- NOTE | 2024-06-13 12:43 | MHC.CM.PN ---
Addendum entered by Guera Sam 06/13/24 16:26: PT HAS MET WITH [facility] WHO WILL PROVIDE SOME Rx PT IS ALSO AWARE SHE CAN PRESENT TO [facility] FOR IMMEDIATE OUTPATIENT MH CARE PT IS AWARE SHE SHOULD PRESENT TO [facility] TOMORROW WITH HER LAST DOSE LETTER TO START OUTPATIENT MMT PT AND RN ARE AWARE PT WILL NEED TO BE BROUGHT TO SECURITY AT 1745 HOURS TO GET HER BELONGINGS PT WILL WAIT IN THE ED LOBBY FOR HER LYFT WHICH WILL SEND UPDATES TO HER CELL PHONE PT WILL DC HOME TODAY WITH MMTP @ [facility] AND A REFERRAL TO [facility] Original Note: CM MET WITH PT TO DISCUSS DC PLANNING PT REPORTS SHE NEEDS A THERAPIST AND PSYCHIATRIST SHE IS AGREEABLE TO A REFERRAL TO [facility] WHICH WAS SENT AT 1243 HOURS TODAY PT STATES SHE WILL NEED [facility]SP[facility] [address] [place] [address] DR PEREIRA PT WILL DC HOME WITH NO SERVICES
--- NOTE | 2024-06-13 14:54 | P.CNPS_ITS ---
History of Present Illness Date of Service: 06/13/24 Chief Complaint: AMS Reason for Consult: medication management Requesting physician: Madison Arguello Discussed with referring provider: Yes Sources of Information: patient interviewed and chart reviewed HPI Narrative: Pt is a 34 yo female with hx of Schizophrenia, PTSD, substance abuse who presents with AMS following overdose on IV heroin. Pt medically stabilized. Psychiatry consulted to assess for psych med management at patients request. She reports she's been off psychiatric meds for over a year but would like to restart them to help with schizophrenia and PtSD... and more specifically AH and nightmares. She reports she used to be on Perphenazine, Prazosin for nightmares and seroquel and trazodone for sleep; she is not sure doses. She does not have a psych provider and is being referred to [facility]. Fibrous Wallboard Inspector called [facility] but they have no hx of med scripts. Fibrous Wallboard Inspector agrees to restart her on low dose of Perphenazine, Prazosin and Trazodone; she understands that she may run out before she gets to see a provider, but wants to start them anyway to help w/ symptoms. Endorses AH; not sure about paranoid delusions; Denies any SI/HI. Past Psychiatric History: Past psychiatric admissions; history of antipsychotic medications Medical Evaluation Reviewed: Yes [facility] Medical History PTSD (post-traumatic stress disorder) Schizophrenia IV drug user Family History: Deferred Social History: Deferred Substance History: Ongoing Trauma History: Positive history Diagnostics Vital Signs (24Hr): Vital Signs - 24 hr 06/12/24 15:50 06/12/24 20:00 06/13/24 00:00 Temperature 97.9 F 97.2 F 96.8 F Pulse Rate 62 58 54 Respiratory Rate 18 16 16 Blood Pressure 128/68 135/95 H Pulse Oximetry 98 99 99 Oxygen Delivery Method Room Air Room Air 06/13/24 04:00 06/13/24 07:19 06/13/24 12:00 Temperature 97.6 F 97.2 F 96.8 F Pulse Rate 56 97 67 Respiratory Rate 18 16 14 Blood Pressure 131/79 131/80 131/78 Pulse Oximetry 100 100 99 Oxygen Delivery Method Room Air Room Air Room Air BMI result Body Mass Index 27.3 Labs 06/12/24 08:04 06/12/24 07:14 Labs: Laboratory Results - last 48 hr 06/12/24 06/12/24 07:14 08:04 WBC 3.4 L RBC 4.25 Hgb 11.3 L Hct 34.2 L MCV 80.5 MCH 26.6 L MCHC 33.0 RDW 14.6 Plt Count 289 MPV 11.3 Immature Gran % (Auto) 0.9 H Neut % (Auto) 40.8 L Lymph % (Auto) 42.3 H [place] % (Auto) 12.8 H Eos % (Auto) 2.3 Baso % (Auto) 0.9 Lymph # (Auto) 1.5 [place] # (Auto) 0.4 Eos # (Auto) 0.1 Baso # (Auto) 0.0 Abs Immat Gran (auto) 0.03 Absolute Neuts (auto) 1.4 L Absolute Nucleated RBC 0.000 Nucleated RBC % (auto) 0.0 Creatinine 0.64 Estim Creat Clear Calc 134.1 Estimated GFR > 60 Imaging Radiology Impressions: ITS Impressions Chest X-Ray 06/10/24 17:44 IMPRESSION: Mild peribronchial cuffing suggesting underlying reactive or small airways disease. Minimal increased markings at the left base more likely due to atelectasis. Electronically signed by: Denny Arevalo MD 06/10/2024 08:14 PM EDT RP Chest X-Ray 06/12/24 08:00 IMPRESSION: Interval improvement from prior study. Electronically signed by: Rodolfo Will MD 06/12/2024 10:55 AM EDT RP Mental Status Exam Mental Status Exam Narrative: Pt is alert and oriented; behavior is cooperative, calm; internally preoccupied; unkempt; mood described as okay, affect a little blunted; eye contact appropriate; speech is normal rate, rhythm and volume; not pressured. no psychomotor agitation/retardation present; thought process is goal directed; Thought content is on tx, getting back on medication; seems to be some underlying paranoid thinking; denies any SI/HI. Intermittent AH Patients insight and judgment appear intact. Medications Medications Current Medications Acetaminophen (Acetaminophen 325 Mg Tablet) 650 mg PO Q6H PRN PRN Reason: Pain, Mild (Pain Scale 1-3), fever or headache Last Admin: 06/12/24 07:36 Dose: 650 mg Amoxicillin/Clavulanate Potassium (Amoxicillin/Potassium Clav 875 Mg Tablet) 875 mg PO BID [facility] Last Admin: 06/13/24 07:58 Dose: 875 mg Calcium Carbonate (Calcium Carbonate 750 Mg Tab.Chew) 750 mg PO Q4H PRN PRN Reason: Heartburn Enoxaparin Sodium (Enoxaparin Sodium 40 Mg/0.4 Ml Syringe) 40 mg SUBCUT Q24H [facility] Last Admin: 06/13/24 02:30 Dose: 40 mg Magnesium Hydroxide (Milk Of Magnesia 30 Ml Oral.Susp) 30 ml PO DAILY PRN PRN Reason: Constipation Melatonin (Melatonin 3 Mg Tablet) 6 mg PO BEDTIME PRN PRN Reason: Insomnia Methadone HCl (Methadone Hcl 20 Mg/2 Ml Oral.Conc) 60 mg PO DAILY [facility] Last Admin: 06/13/24 07:58 Dose: 60 mg Ondansetron HCl (Ondansetron Hcl 4 Mg/2 Ml Vial) 4 mg IVPUSH Q8H PRN PRN Reason: Nausea and Vomiting Oxycodone HCl (Oxycodone Hcl Immed Release 5 Mg Tablet) 10 mg PO Q4H PRN PRN Reason: Pain, Moderate(Pain Scale 4-6) Last Admin: 06/13/24 02:33 Dose: 10 mg Perphenazine (Perphenazine 2 Mg Tablet) 2 mg PO BID [facility] Prazosin HCl (Prazosin Hcl 1 Mg Capsule) 1 mg PO BEDTIME [facility]; Protocol Sodium Chloride (0.9 % Sodium Chloride Flush 3 Ml Syringe) 3 ml IVFLUSH QSHIFT [facility] Last Admin: 06/13/24 07:58 Dose: 3 ml Trazodone HCl (Trazodone Hcl 50 Mg Tablet) 50 mg PO BEDTIME [facility] Last Admin: 06/12/24 20:11 Dose: 50 mg Allergies Allergies Allergy/AdvReac Type Severity Reaction Status Date / Time latex [LATEX] Allergy Unknown RASH Verified 06/10/24 18:05 latex Allergy Unknown hives Uncoded 06/10/24 18:05 Assessment & Plan Assessment & Plan (1) Schizophrenia: Status: Acute Code(s): F20.9 - Schizophrenia, unspecified (2) PTSD (post-traumatic stress disorder): Status: Acute Code(s): F43.10 - Post-traumatic stress disorder, unspecified (3) Opioid use disorder: Status: Acute Code(s): F11.90 - Opioid use, unspecified, uncomplicated Plan Pt is a 34 yo female with hx of Schizophrenia, PTSD, substance abuse who presents with AMS following overdose on IV heroin. overdose. Pt medically stabilized and fully A/O. Psychiatry consulted to assess for psych med management at patients request. She reports she's been off psychiatric meds for over a year but would like to restart them to help with schizophrenia and PtSD... and more specifically AH and nightmares. She reports she used to be on Perphenazine, Prazosin for nightmares and seroquel and trazodone for sleep; she is not sure doses. She does not have a psych provider and is being referred to [facility]. Fibrous Wallboard Inspector called [facility] but they have no hx of med scripts. Fibrous Wallboard Inspector agrees to restart her on low dose of Perphenazine, Prazosin and Trazodone; she understands that she may run out before she gets to see a provider, but wants to start them anyway to help w/ symptoms. Endorses AH; not sure about paranoid delusions; Denies any SI/HI. Plan: Will restart patient on perphenazine 2 mg b.i.d.; patient is not sure what her home dose was but agrees that this is a sufficient start Will restart patient on prazosin 1 mg q.h.s. for nightmare Will restart patient on trazodone q.h.s.; she says she has to take 150 mg, however she is discharging and just restarting medications so will leave it at 50 with a repeat Discussed case with telehealth case manager who is referring patient to [facility] for follow-up Total time managing care of this patient today ____ minutes. Patient educated on: diagnosis, medication risk/benefits and substance abuse Informed Consent: understands
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
[2024-06-13 16:00] VITALS: BP 135/75; PULSE 60; RESP 12; TEMP 36.1; O2SAT 98
[2024-06-13] MEDS: Naloxone HCl Nasal TAKE HOME 4 MG SPRAY 8 MG NOSTRILALT (16:00)
== END 2024-06-13 17:47 | disposition home or self-care (01) | DRG 816 ==
LOC: HO.ED 06-11 01:23 → HO.EDOVER 06-11 02:21 → HO.S3 06-11 20:00
PROVIDERS: Hospitalist; Nurse Practitioner Family; Admitting Provider Student in an Organized Health Care Education/Training Program; Emergency Provider Emergency Medicine; PCP Internal Medicine; Visit Provider Physician Assistant Medical
DX: T40.1X1A Poisoning by heroin, accidental (unintentional), initial encounter (principal); G92.8 Other toxic encephalopathy; R65.10 Systemic inflammatory response syndrome (SIRS) of non-infectious origin without acute organ dysfunction; D64.9 Anemia, unspecified; F11.93 Opioid use, unspecified with withdrawal; E87.6 Hypokalemia; F20.9 Schizophrenia, unspecified; F43.10 Post-traumatic stress disorder, unspecified; F19.10 Other psychoactive substance abuse, uncomplicated; Z20.822 Contact with and (suspected) exposure to COVID-19; Z91.148 Patient's other noncompliance with medication regimen for other reason
CPT/HCPCS: 0241U; 36415; 71045; 80048; 80053; 80307; 81001; 81025; 82565; 83605; 85025; 87040; 87086; 99285; J1650; J2543; J3370; J3371

== ENCOUNTER → 2024-06-11 02:13 | Outpatient (BNV) | payer OTHER, SELFPAY | PROVIDERS: Admitting Provider Student in an Organized Health Care Education/Training Program; Emergency Provider Emergency Medicine; PCP Internal Medicine; Visit Provider Nurse Practitioner Psychiatric/Mental Health | DX: F11.90 Opioid use, unspecified, uncomplicated (principal) | CPT/HCPCS: 99232 ==

== ENCOUNTER → 2024-06-11 02:13 | Outpatient (BNV) | payer OTHER, SELFPAY | PROVIDERS: Admitting Provider Student in an Organized Health Care Education/Training Program; Emergency Provider Emergency Medicine; Visit Provider Student in an Organized Health Care Education/Training Program | DX: G92.9 Unspecified toxic encephalopathy (principal); R65.10 Systemic inflammatory response syndrome (SIRS) of non-infectious origin without acute organ dysfunction | CPT/HCPCS: 99222; 99232; 99239; 99499 ==

== ENCOUNTER → 2024-06-11 02:13 | Outpatient (BNV) | payer OTHER, SELFPAY | PROVIDERS: Admitting Provider Student in an Organized Health Care Education/Training Program; Emergency Provider Emergency Medicine; PCP Internal Medicine; Visit Provider Psychiatry & Neurology Psychiatry | DX: F20.9 Schizophrenia, unspecified (principal); F43.11 Post-traumatic stress disorder, acute; F11.90 Opioid use, unspecified, uncomplicated | CPT/HCPCS: 99232 ==

== ENCOUNTER 2025-01-27 13:15 | Emergency (ER) | payer OTHER, SELFPAY ==
--- NOTE | 2025-01-27 13:25 | ED.PSYCH ---
HPI - Psych General Chief Complaint: Behavioral Concerns Stated Complaint: FOUND ON STREET,NON MED COMP,H/O SCHIZOPHRENIA Time Seen by Provider: 01/27/25 13:23 Source: patient and RN notes reviewed Mode of arrival: ambulatory Limitations: no limitations History of Present Illness ED Provider: Hemalatha Martínez PA-C HPI Narrative: This is a 34-year-old female who presents emergency department via EMS after police found her sleeping underneath the stairs. Based on previous past records, she has a history of polysubstance IV drug use. Patient reporting no complaints, no SI or HI. She does not want to be without her phone, in his requesting to have a pad for her menstrual cycle that she currently has. She denies any physical ailments. No other complaints or concerns at this time. Related Data Previous Rx's ?Medication ?Instructions ?Recorded amoxicillin 875 mg-potassium 1 tab PO BID 4 days #8 tabs 06/13/24 clavulanate 125 mg tablet perphenazine 2 mg tablet 2 mg PO BID 30 days #60 tabs 06/13/24 prazosin 1 mg capsule 1 mg PO BEDTIME 30 days #30 caps 06/13/24 trazodone 50 mg tablet 50 mg PO BEDTIME MRX1 PRN insomnia 06/13/24 30 days #60 tabs Allergies Allergy/AdvReac Type Severity Reaction Status Date / Time latex [LATEX] Allergy Unknown RASH Verified 01/27/25 14:19 latex Allergy Unknown hives Uncoded 01/27/25 14:19 Review of Systems Review of Systems: Yes all other systems are reviewed and are negative Constitutional: Constitutional: Reports as per HPI [facility] Past Medical History Medical History PTSD (post-traumatic stress disorder) Schizophrenia IV drug user Social History Social History Household Members: Family Housing: Condominium Do you presently have visiting nurse or other home services: Yes Unable to assess alcohol history related to: Refusing to respond Patient Tobacco Use Status: Refuse Tobacco use screen Smoked in Last 30 Days: No Use of substances other than those prescribed or required for medical reasons: No Advance Directives: Yes Advance Directives on File: Yes Advance Directives Date on File: 06/11/24 Do you have a plan to hurt others: No Plan service: No Physical Exam Vital Signs: Vital Signs: Last Vital Signs Temp 98.0 F 01/27/25 14:38 Pulse 130 H 01/27/25 14:38 Resp 14 01/27/25 14:38 BP 140/103 H 01/27/25 14:38 Pulse Ox 95 01/27/25 14:38 O2 Del Method Room Air 01/27/25 14:38 BMI result Body Mass Index 27.4 Const: General: cooperative, comfortable and no acute distress Orientation/consciousness: patient oriented x3 Limitations: no limitations HEENT: Head: Yes normal to inspection, Yes normocephalic and Yes atraumatic Ears: hearing grossly normal bilaterally General nose exam: Normal external nose present Face and sinus: Yes normal facial exam Mouth: Normal oral and palatal mucosa present, oropharynx normal and moist mucous membranes Throat: Yes posterior oropharynx normal Eyes: General: appearance normal, both eyes and all related structures Eyelids: Yes eyelids normal Conjunctivae: conjunctivae normal Sclerae: sclerae normal Pupils: Equal, round and reactive pupils present EOM: EOMs intact bilaterally Neck: Neck: Yes normal visual inspection, Yes full ROM and Yes no lymphadenopathy Lymphatic: no lymphadenopathy noted Chest: Chest palpation & inspection: normal inspection of the chest Resp: Effort & Inspection: normal respiratory effort and able to speak in complete sentences Auscultation: clear to auscultation bilaterally, no crackles, no rales, no rhonchi and no wheezes Cardio: Rate: regular rate Rhythm: regular rhythm Heart sounds: S1 normal heart sound present and S2 normal heart sound present GI: Inspection: Yes normal to inspection Skin: General skin exam: no rashes or lesions noted Trauma: no lacerations or abrasions Wounds: no wounds Neuro: General: patient oriented x3 and moves all extremities Cranial nerves: Yes Equal, round and reactive pupils present Extrem: General: Yes normal to inspection Right upper extremity: normal to inspection Left upper extremity: normal to inspection Right lower extremity: normal to inspection Left lower extremity: normal to inspection Psych: Other: Patient with disorganized thoughts however redirectable, not eliciting any suicidal or homicidal ideation. Appearance: disheveled Mental Status: mental status grossly normal Speech and movement: Normal speech and movement present Thought process: Normal thought process present Thought content: Normal thought content present Medical Decision Making Medical Decision Making MDM Narrative: This is a 34-year-old female who presents emergency department for evaluation of mental health screening. She was brought in via EMS by the police for a mental health screening. She was found sleeping underneath a stairwell. She was alert and oriented x4, head is normocephalic atraumatic. She is speaking in full sentences. I had accompanied nurse to have patient changed over, upon her changing over she became very irritated and frustrated with the overall situation, we asked if he could take her phone to put in with her belongings however she refuses to. I discussed this case with my attending physician, Dr. Miramontes, who went and evaluated patient. Patient has disorganized thoughts however does not pose a threat to herself or others. At this time, there is no indication for any further workup at this time. Patient does not want to stay for further evaluation. Tachycardic however she was anxious appearing, agitated, pacing - likely the source of the tachycardia. Differential Diagnosis Differential Diagnoses: The differential diagnosis associated with the presentation includes anixety, depression, SI, HI, mental health screening Discharge Plan Discharge Clinical Impression: Encounter for behavioral health screening Patient Disposition: Home, Self-Care Instructions: Anxiety (ED) Additional Instructions: Please continue all at-home medications. If any new or worsening symptoms occur including but not limited to thoughts of harming herself, thoughts of harming anyone else, auditory or visual hallucinations, please seek emergent care. Prescriptions: No Action amoxicillin-pot clavulanate 875-125 mg Tablet 1 tab PO BID 4 Days Qty: 8 0RF prazosin 1 mg Capsule 1 mg PO BEDTIME 30 Days Qty: 30 1RF Protocol: Hold for SBP< HOLD for SBP < : 90 perphenazine 2 mg Tablet 2 mg PO BID 30 Days Qty: 60 1RF trazodone 50 mg Tablet 50 mg PO BEDTIME MRX1 PRN (Reason: insomnia) 30 Days Qty: 60 1RF Interventions: ED Discharge Assessment Last Done: 01/27/25 14:38 Discharge Date/Time: 01/27/25 15:41 Print Language: Sami
--- NOTE | 2025-01-27 14:04 | PC.NURSE ---
pt's soiled clothing placed in washer in BH pod.
[2025-01-27 14:09] VITALS: BP 140/103; BP 170/90; PULSE 130; RESP 14; TEMP 36.7; O2SAT 95; BMI 27.4
--- NOTE | 2025-01-27 14:27 | PC.NURSE ---
Pt comes to ED via EMS. Per EMS, Police found Pt underneath some stairs sleeping on a couch. PD called EMS to have Pt brought to ED for mental health screening. Upon arrival Pt noted to be on speaker phone talking loudly to her contact. loom changeover operator process completed by this RN and JAM Penny given no female security staff available and Pt currently menstruating. Pt able to be re-directed to bathroom for foreign exchange services manager process with this RN and JAM Penny. During foreign exchange services manager Pt has difficulty following direction and proceeds to administer her own bed bath via bathroom sink. Pt answers questions put forth to her and completes clothing foreign exchange services manager without incident. Pt provided with feminine hygiene products. Upon exiting the bathroom, security continues with foreign exchange services manager process. Pt refuses to comply with collection of personal cell phone. Pt given explanation on reasoning for this policy, however Pt continues to refuse to comply. Pt states she unwilling to proceed with evaluations by this RN and JAM Penny. Dr. Miramontes approaches Pt and Pt is willing to speak with Dr. Miramontes --please see noted from JAM Penny and/or Dr. Miramontes for additional information. VS noted to be elevated however Pt is pacing in front of her stretcher and is agitated. Pt presents with NAD at this time. Breaths and speech are even and unlabored. Facial symmetry noted. Skin is warm and dry Pt denies any pain and offers no complaints at this time. Per ED providers, Pt is cleared for d/c at this time.
[2025-01-27 14:38] VITALS: BP 140/103; PULSE 130; RESP 14; TEMP 36.7; O2SAT 95
--- OUTSIDE RECORDS SUMMARY | 2025-01-27 14:41 | XMS_ITS | Encounter Summary ---
Author Organization [facility] Address [address] [place] [id number] Phone Care Team Providers Care Mechanical Systems Designer Name Role Phone Unavailable Primary Care Provider Unavailabl e Encounter Details Date Type Department Care Team (Late st Contact Info) Description 08/10/2017 Conversion Encounter [facility] - [address] [id number] Social History Tobacco Use Types Packs/Day Years Used Date Smoking Tobacco: Never Assessed Comments Unknown Sex and Gender Information Value Date Recorded Sex Assigned at Not on file Legal Sex Female 4:26 PM EDT Gender Identity Not on file Sexual Orientation Not on file documented as of this encounter Plan of Treatment Not on file documented as of this encounter Visit Diagnoses Not on filedocumented in this encounter
--- OUTSIDE RECORDS SUMMARY | 2025-01-27 14:41 | XMS_ITS | Clinical Summary ---
Author Organization [facility] Address [address] [place] [id number] Phone Care Team Providers Care Utility Bill Collection Clerk Name Role Phone Unavailable Primary Care Provider Unavailabl e Immunizations Immunization Administration Dates Next Due DTP 03/08/1995, 2,1990,1989,1990 HPV, Quadrivalent 01/15/2008,07/20/2007,04/20/20 07 Hep B, ped/adol 12/21/1999,07/12/1999,06/04/1999 Hib (PRP-T) 09/07/1993, 1,1990,1989 IPV 03/08/1995, 2,1990,1989 MMR 03/08/1995,07/29/1991 Td (adult) (MBL), 2 Lf tetan us toxoid, PF, adsorbed 11/14/2001 Social History Tobacco Use Types Packs/Day Years Used Date Smoking Tobacco: Never Assessed Comments Unknown Sex and Gender Information Value Date Recorded Sex Assigned at Not on file Legal Sex Female 4:26 PM EDT Gender Identity Not on file Sexual Orientation Not on file Plan of Treatment Health Maintenance Due Date Last Done Comments DTaP,Tdap,and Td Vaccines (6 - Tdap) 11/15/2001 11/14/2001, 03/08/1995, 02/06/1992, Additional history exists Varicella Vaccines (1 of 2 - 13+ 2-dose series) 2003 Influenza Vaccines (#1) 2024 COVID-19 Vaccine ( season) 2024 HIB Vaccines Completed 09/07/1993, 07/11, 1990, Additional history exists IPV Vaccines Completed 03/08/1995, 01/09, 1990, Additional history exists MMR Vaccines Completed 03/08/1995, 07/29/1991 Hepatitis B Vaccines Completed 12/21/1999, 07/12/1999, 06/04/1999 HPV Vaccines Completed 01/15/2008, 07/09, 04/20/2007 Hepatitis A Vaccines Aged Out No long er eligible based on patient's age to complete this topic Men B Vaccine Aged Out No longer elig ible based on patient's age to complete this topic Meningococcal Vaccine Aged Out No amara natasha eligible based on patient's age to complete this topic Pneumococcal Vaccine Aged Out No long er eligible based on patient's age to complete this topic
--- OUTSIDE RECORDS SUMMARY | 2025-01-27 14:41 | XMS_ITS | Clinical Summary ---
Author Organization [employer] Address [address] [place] [address] Care Team Providers Care Mandarin Teacher Name Role Phone Unavailable Primary Care Provider Unavailabl e Immunizations Name Administration Dates Next Due Pfizer Covid-19 Vaccine 12+ Bivalent 10/04/2022 Social History Tobacco Use Types Packs/Day Years Used Date Smoking Tobacco: Never Assessed Comments Unknown Sex and Gender Information Value Date Recorded Sex Assigned at Female 10/04/2022 4:08 PM EST Legal Sex Female 4:04 PM EST Gender Identity Female 10/04/2022 4:08 PM EST Sexual Orientation Not on file Plan of Treatment Health Maintenance Due Date Last Done Comments Depression Screening 1990 HIV Screening 1990 SDOH Screening 1990 Alcohol/Substance Use Screening 2002 Tobacco Screening 2002 Family Planning (PISQ) 2005 Hepatitis C Screening 2008 Pap Smear 2011 Cervical Cancer Screening 2020 HPV/Cotest 2020 COVID-19 Vaccine ( season) 2024 10/04/2022, 10/18/2021 Influenza Vaccine (#1) 2024 06/23/2017 DTaP/Tdap/Td Vaccines (7 - Td or Tdap) 08/20/2028 08/20/2018, 11/14/2001, 03/08/1995, Additional history exists Zoster Vaccines (1 of 2) 2040 RSV Patients and Patients Aged 60 years or older (1 - 1-dose 75+ series) 2065 HIB Vaccines Completed 09/07/1993, 07/11, 1990, Additional history exists IPV Vaccines Completed 03/08/1995, 01/09, 1990, Additional history exists Hepatitis B Vaccines Completed 12/21/1999, 07/12/1999, 06/04/1999 HPV Vaccines Completed 01/15/2008, 07/09, 04/20/2007 Hepatitis A Vaccines Aged Out No long er eligible based on patient's age to complete this topic Meningococcal Vaccine Aged Out No amara natasha eligible based on patient's age to complete this topic Pneumococcal Vaccine: Pediatrics (0 to 5 Years) and At-Risk Patients (6 to 49) Years) Aged Out No longer eligible based on patient's age to complete this topic RSV under 20 months Aged Out No longe r eligible based on patient's age to complete this topic Rotavirus Vaccines Aged Out No longer eligible based on patient's age to complete this topic Insurance [facility]
== END 2025-01-27 15:41 | disposition home or self-care (01) ==
PROVIDERS: Emergency Provider Emergency Medicine
DX: F25.9 Schizoaffective disorder, unspecified (principal); Z91.148 Patient's other noncompliance with medication regimen for other reason
CPT/HCPCS: 99283

== ENCOUNTER 2025-03-07 13:50 | Emergency (ER) | payer OTHER, SELFPAY ==
[2025-03-07 13:59] VITALS: BP 122/78; PULSE 126; O2SAT 95
[2025-03-07 14:06] VITALS: BP 131/78; PULSE 102; RESP 18; TEMP 37.1; O2SAT 93; BMI 29.2
--- NOTE | 2025-03-07 14:17 | ED.ALCOHOL ---
HPI - Alcohol General Chief Complaint: ETOH/Substance Use Stated Complaint: FOUND UNRESPONSIVE,AWAKE TO PAIN STIM,ETOH USE Time Seen by Provider: 03/07/25 13:59 Source: patient, EMS and old records reviewed Mode of arrival: EMS Limitations: no limitations History of Present Illness ED Provider: LISA HERRERA narrative: 34 yo female with mental health issues, opiate use disorder was found sleeping on the ground - she admits to ECOH use and denies drug use. Bystander gave her 8mg narcan. Patient is awake and alert, oriented x 3, states she laid down to sleep did not fall and has no trauma. She denies SI/HI. complaint: alcohol intoxication Last drink: Hours (ago) Chronic alcohol use: No Previous visits for alcohol intoxication: No Recent trauma: No Associated symptoms: denies other symptoms Treatments prior to arrival: other Related Data Previous Rx's ?Medication ?Instructions ?Recorded amoxicillin 875 mg-potassium 1 tab PO BID 4 days #8 tabs 06/13/24 clavulanate 125 mg tablet perphenazine 2 mg tablet 2 mg PO BID 30 days #60 tabs 06/13/24 prazosin 1 mg capsule 1 mg PO BEDTIME 30 days #30 caps 06/13/24 trazodone 50 mg tablet 50 mg PO BEDTIME MRX1 PRN insomnia 06/13/24 30 days #60 tabs Allergies Allergy/AdvReac Type Severity Reaction Status Date / Time latex [LATEX] Allergy Unknown RASH Verified 03/07/25 14:08 latex Allergy Unknown hives Uncoded 01/27/25 14:19 Review of Systems Review of Systems: Constitutional : No Fever, No Chills, No Fatigue ENT/Mouth : No sore throat, No Rhinorrhea Eyes: No Eye Pain, No Swelling, No Redness Cardiovascular : No Chest Pain, No SOB, No Dyspnea on Exertion Respiratory : No Cough, No Sputum Gastrointestinal : No Nausea, No Vomiting, No Diarrhea, No abdominal Pain Genitourinary : No Dysuria, No Urinary Frequency, No Hematuria, Musculoskeletal : No joint pain, No Myalgias, No Joint Swelling Skin : No Skin Lesions, No rash Neuro : No Weakness, No Numbness, No Dizziness, no Headache Psych : No Anxiety/Panic, No Depression All other systems reviewed and are negative PMFSH Past Medical History Attestation statement: The following information was validated with the patient. Source: old records reviewed Medical History PTSD (post-traumatic stress disorder) Schizophrenia IV drug user Social History Social History Household Members: Family Housing: Condominium Do you presently have visiting nurse or other home services: Yes Unable to assess alcohol history related to: Refusing to respond Patient Tobacco Use Status: Refuse Tobacco use screen Advance Directives: Yes Advance Directives on File: Yes Advance Directives Date on File: 06/11/24 Do you have a plan to hurt others: No Plan service: No Physical Exam ED Vital Signs: Vital Signs - 24 hr 03/07/25 14:06 03/07/25 16:18 Temperature 98.7 F Pulse Rate 102 H Respiratory Rate 18 14 Blood Pressure 131/78 Pulse Oximetry 93 Oxygen Delivery Method Room Air BMI result Body Mass Index 29.2 Appearance: Alert. Oriented X3. No acute distress. Eyes: Pupils equal, round and reactive to light. ENT: Pharynx normal. atraumatic, ETOH odor noted on exam Neck: Normal inspection. Neck supple. CVS: Normal heart rate and rhythm. Pulses normal. Respiratory: No respiratory distress. Breath sounds normal. Abdomen: Soft and nontender. Skin: Skin warm and dry. Normal skin color. Normal skin turgor. Extremities: No lower extremity edema. No calf ttp Neuro: Oriented X 3. No motor deficit. No sensory deficit. CN2-12 intact Course Course Course Narrative: mom called and is demanding a drug test I explained we cannot force her. she then states she is on her way we are going to do a drug test when she arrives and that she will then leave her daughter here until she gets some answers. at this point I do not think it is beneficial to the patient if her mother comes back and we can continue to hold the patient and offer any services she needs. Reevaluation(s) Reevaluation #1: patient's mom refused to pick her up, she is alert and oriented x 3, steady gait waiting on ride home prior to DC she walked out of the ED on her own - no signs of fall or intoxication at this time. Medical Decision Making Medical Decision Making MDM Narrative: 34 yo female with mental health issues, opiate use disorder now here after ETOH use and wanting to sleep - she has no SI/HI no signs of trauma she does not appear intoxicated though I can smell the ETOH on her breath. She refuses SUDE or detox. She is trying to call for sober ride home Differential Diagnosis Differential Diagnoses: The differential diagnosis associated with the presentation includes opiate use, ETOH use but she is clinically sober she is attempting to get a sober ride home Admission/Observation Consideration of admission/observation: Escalation of care including admission/observation considered does not want to stay no SI refuses SUDE Independent Historian Clinical information obtained from an independent historian. History obtained from or confirmed by: EMS External Record Review External record reviewed: Outpatient record Social Determinants Patient?s care significantly limited by Social Determinants of Health including: Problems related to primary support group Discharge Plan Discharge Clinical Impression: Opioid use disorder, Alcoholic intoxication Overdose Qualifiers: Encounter type: initial encounter Injury intent: accidental or unintentional Qualified Code(s): T50.901A - Poisoning by unspecified drugs, medicaments and biological substances, accidental (unintentional), initial encounter Instructions: Alcohol Intoxication (ED), Opioid Use Disorder (ED) Additional Instructions: Alcohol use disorder You were seen in the Emergency Department today for treatment of alcohol use disorder.? You may have been given medications to help with your withdrawal symptoms.? Please do not drink alcohol with them. This is very dangerous and can cause respiratory depression or other adverse reactions depending on the medication. If you would like to cut down or stop your alcohol use please consider calling our outpatient Addiction Treatment office:? [facility] (M-F 9a-[address]p [address] [place] [address] ? You have also been given a list of treatment providers in the area that can assist as well.? If you experience seizures, vomiting blood, black stools, falls, severe headache, chest pain, fevers, trouble breathing, hallucinations or any other concerns you need to call 911 or seek immediate care. Please stay hydrated. Opiate use disorder You were seen in our Emergency Department today for treatment of opiate use disorder. You may have been dosed with medication for opiate use disorder (MOUD) in the form of suboxone or methadone. You may experience feeling some withdrawal symptoms and this is normal. The? dose in the Emergency Department is a starting dose and meant to be titrated up once you follow up with a clinic. Please do not feel discouraged, it is a process. The nurse has reviewed with you where to follow up and what information to bring with you, to continue treatment. You also may have been given naloxone (narcan) to take home with you. This medication is used to potentially treat opiate overdose. If you decide you want to stop or cut down on how much you?re using, you can call or walk into our outpatient Addiction Treatment office: [facility] (M-F 9am-5p) [address], [address] [phone] You may have been provided with safer injection?items, please take time to take care of YOU and your health. Use new supplies whenever possible to lessen the chances of infections and other illnesses.? ?[facility] you need [facility] [address], [place] you can call or text to coordinate delivery of safer supplies. You were also provided a list of several treatment providers in the area.? If you experience any worsening symptoms you cannot control please return to the ED or call 911. Please follow up at your next appointment. Things to look out for are fevers, chest pain, shortness of breath, severe pain, dizziness, fainting or any other concerns. Prescriptions: No Action amoxicillin-pot clavulanate 875-125 mg Tablet 1 tab PO BID 4 Days Qty: 8 0RF prazosin 1 mg Capsule 1 mg PO BEDTIME 30 Days Qty: 30 1RF Protocol: Hold for SBP< HOLD for SBP < : 90 perphenazine 2 mg Tablet 2 mg PO BID 30 Days Qty: 60 1RF trazodone 50 mg Tablet 50 mg PO BEDTIME MRX1 PRN (Reason: insomnia) 30 Days Qty: 60 1RF Print Language: Maltese
--- OUTSIDE RECORDS SUMMARY | 2025-03-07 14:18 | XMS_ITS | Clinical Summary ---
Author Organization [employer] Address [address] [place] [address] Care Team Providers Care Cyber Special Agent Name Role Phone Unavailable Primary Care Provider Unavailabl e Immunizations Immunization Administration Dates Next Due Pfizer Covid-19 Vaccine [...] 1990 HIV Screening 1990 SDOH Screening 1990 Disability Screening 1990 Alcohol/Substance Use Screening 2002 Tobacco [...] patient's age to complete this topic Meningococcal B Vaccine Aged Out No l onger eligible based on patient's age to complete [...] patient's age to complete this topic Insurance [facility]
[2025-03-07 16:18] VITALS: RESP 14
--- NOTE | 2025-03-07 16:50 | PC.NURSE ---
Pt mother called and per pt permission mom was updated. Mom was very aggressive on the phone and demanding she gets drug tested. Staff does not feel comfortable allowing her to bedside. Security and front end drupal developer made aware to not allow pt mother into the ED.
[2025-03-07 19:00] VITALS: BP 131/78; PULSE 102; RESP 14; TEMP 37.1; O2SAT 93
== END 2025-03-07 19:00 | disposition home or self-care (01) ==
PROVIDERS: Emergency Provider Emergency Medicine; PCP Internal Medicine
DX: F10.129 Alcohol abuse with intoxication, unspecified (principal); F11.90 Opioid use, unspecified, uncomplicated; T65.91XA Toxic effect of unspecified substance, accidental (unintentional), initial encounter; Y92.9 Unspecified place or not applicable
CPT/HCPCS: 99284

== ENCOUNTER 2025-03-27 20:25 | Emergency (ER) | payer OTHER, SELFPAY ==
[2025-03-27 20:31] VITALS: BP 124/69; BP 126/94; PULSE 114; PULSE 118; RESP 18; TEMP 37; O2SAT 96; O2SAT 97; BMI 25.1
--- NOTE | 2025-03-27 20:36 | ECG_ITS ---
Test Reason : SUBSTANCE ABUSE Blood Pressure : */* mmHG Vent. Rate : 101 BPM Atrial Rate : 101 BPM P-R Int : 150 ms QRS Dur : 84 ms QT Int : 370 ms P-R-T Axes : 63 31 6 degrees QTcB Int : 479 ms Sinus tachycardia Possible Left atrial enlargement Nonspecific T wave abnormality Abnormal ECG When compared with ECG of 01-Jan-2018 17:32, Minimal criteria for Inferior infarct are no longer Present Nonspecific T wave abnormality, worse in Inferior leads T wave inversion no longer evident in Anterior leads T wave inversion now evident in Lateral leads Referred By: Generic ED Physician Electronically Signed By: Amadou Tellez
--- NOTE | 2025-03-27 20:45 | PC.NURSE ---
Patient changed over in behavioral health attire, patient's belongings secured in [facility]. Patient denied SI/HI.
--- NOTE | 2025-03-27 20:53 | MHC.EDTECH ---
Pt refusing blood draw, stating No, I don't do blood, I don't like needles . Tish RN aware EKG done
--- NOTE | 2025-03-27 22:13 | PC.NURSE ---
Patient continues to refuse blood draw/UA/CORDERO. Dr. Mason is aware. Patient is alert and oriented x3, VSS. Patient denies any pain. Patient requested and given turkey sandwich with leslie elier, tolerating well. Patient observed ambulating to the restroom and back to her room with steady gait. Call agee in patient's reach. Dr. Mason at bedside assessing patient.
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
[2025-03-27 22:36] VITALS: BP 133/70; PULSE 98; RESP 16; TEMP 37; O2SAT 96
[2025-03-27 22:54] VITALS: BP 133/70; PULSE 98; RESP 16; TEMP 37; O2SAT 96
== END 2025-03-27 23:04 | disposition home or self-care (01) ==
PROVIDERS: Emergency Provider Internal Medicine; PCP Internal Medicine
DX: F11.188 Opioid abuse with other opioid-induced disorder (principal); R00.0 Tachycardia, unspecified; R94.31 Abnormal electrocardiogram [ECG] [EKG]; Z79.899 Other long term (current) drug therapy
CPT/HCPCS: 93005; 99283; 99285

== ENCOUNTER → 2025-03-27 20:36 | Outpatient (BNV) | payer OTHER, SELFPAY | PROVIDERS: Emergency Provider Internal Medicine; PCP Internal Medicine; Visit Provider Internal Medicine Cardiovascular Disease | DX: R00.0 Tachycardia, unspecified (principal) | CPT/HCPCS: 93010 ==

== ENCOUNTER 2025-04-03 13:20 | Emergency (ER) | payer OTHER, SELFPAY ==
[2025-04-03] VITALS (8 sets, daily range): BP systolic 114–170; BP diastolic 68–97; PULSE 59–128; RESP 15–22; TEMP 36.5–36.9; O2SAT 97–100; BMI 25.1
--- NOTE | 2025-04-03 13:42 | ECG_ITS ---
Test Reason : Tachy Blood Pressure : */* mmHG Vent. Rate : 103 BPM Atrial Rate : 103 BPM P-R Int : 144 ms QRS Dur : 90 ms QT Int : 354 ms P-R-T Axes : 84 68 88 degrees QTcB Int : 463 ms Sinus tachycardia Otherwise normal ECG When compared with ECG of 27-Mar-2025 20:47, T wave inversion no longer evident in Lateral leads Referred By: Kurtis Meyers Electronically Signed By: RACH SHERIDAN
--- NOTE | 2025-04-03 13:47 | PC.ADMIT ---
Pt requiring extensive redirection to stay still for VS. Pt continues to be agitated and confused. Not able to follow directions and answer any questions. Pt seen by provider- pt on full monitor. Pt VSS except tachycardic. Provider aware.
[2025-04-03] MEDS: LORazepam 1 MG TABLET 2 MG PO (13:54)
--- NOTE | 2025-04-03 13:57 | ED_ITS ---
HPI - General Adult General Chief complaint: Altered Mental Status Stated complaint: PER EMS OD, HR 127 Time Seen by Provider: 04/03/25 13:31 Source: patient, RN notes reviewed and old records reviewed Mode of arrival: EMS Limitations: altered mental status History of Present Illness ED Provider: Mira HPI narrative: 34-year-old female presents for evaluation of agitation. Per EMS, the patient was [place], walk to the bathroom and then exited the bathroom with an altered mental status in a hyperactive state. The patient is hysterical, crying, quite restless. She is alert and oriented to person and place but is unable or unwilling to explain why she was in the hospital. During the record changer assembler EMS found several bags of a white powdery substance on the patient's person The patient offers no complaints and states she feels well Related Data Previous Rx's ?Medication ?Instructions ?Recorded amoxicillin 875 mg-potassium 1 tab PO BID 4 days #8 ta bs 06/13/24 clavulanate 125 mg tablet perphenazine 2 mg tablet 2 mg PO BID 30 days #60 tabs 06/13/24 prazosin 1 mg capsule 1 mg PO BEDTIME 30 days #30 caps 06/13/24 trazodone 50 mg tablet 50 mg PO BEDTIME MRX1 PRN in somnia 06/13/24 30 days #60 tabs Allergies Allergy/AdvReac Type Severity Reaction Status Date / Time latex (LATEX) Allergy Unknown RASH Verified 04/03/25 13:43 latex Allergy Unknown hives Uncoded 04/03/25 13:43 Review of Systems 2 Constitutional: Constitutional: Denies body ache(s), Denies chills and Denies fever(s) Cardiovascular: Cardiovascular: Denies chest pain and Denies dyspnea Respiratory: Respiratory: Denies dyspnea Integumentary/Breasts: Skin/Breast: Denies rash PMFSH Past Medical History Medical History PTSD (post-traumatic stress disorder) Schizophrenia IV drug user Social History Social History Household Members: Family Housing: Condominium Do you presently have visiting nurse or other home services: Yes Unable to assess alcohol history related to: Refusing to respond Patient Tobacco Use Status: Refuse Tobacco use screen Use of substances other than those prescribed or required for medical reasons: Yes Advance Directives: Yes Advance Directives on File: Yes Advance Directives Date on File: 06/11/24 service: No Physical Exam ED Vital Signs: Vital Signs - 24 hr 04/03/25 13:40 04/03/25 15:22 04/03/25 16:28 Temperature 98.4 F 98.1 F Pulse Rate 128 H 93 86 Respiratory Rate 22 H 16 15 Blood Pressure 133/97 H 114/68 119/71 Pulse Oximetry 97 97 97 Oxygen Delivery Method Room Air Room Air Room Air 04/03/25 16:46 04/03/25 18:33 04/03/25 19:31 Temperature 97.7 F 97.9 F Pulse Rate 79 59 65 Respiratory Rate 18 19 Blood Pressure 133/76 132/76 134/91 H Pulse Oximetry 100 100 100 Oxygen Delivery Method Room Air Room Air Room Air BMI result Body Mass Index 25.1 Const General: comfortable, alert and awake Nutritional Appearance: well nourished Orientation/consciousness: oriented to person, oriented to place and oriented to time Limitations: altered mental status and behavioral limitations HENMT Head: Yes normocephalic and Yes atraumatic Eyes Eyelids: Yes eyelids normal Conjunctivae: conjunctivae normal Sclerae: sclerae normal Corneas: corneas normal Pupils: Equal, round and reactive pupils present EOM: EOMs intact bilaterally Neck Neck: Yes full ROM Resp Effort & Inspection: normal respiratory effort, able to speak in complete sentences and not labored Cardio Rate: regular rate Rhythm: regular rhythm GI Inspection: No distended Palpation (GI): Soft to palpation, not firm, nontender, no guarding and not rigid Skin General skin exam: elasticity normal Neuro General: oriented to person, oriented to place and oriented to time Cranial nerves: Yes Equal, round and reactive pupils present and Yes Bilaterally intact EOM present Extrem Other: Moving all extremities well without any obvious deformities Psych Appearance: disheveled Speech and movement: Psychomotor agitation in speech present and Restless speech present Affect: Animated affect present Thought content: suicidality and no homicidality Insight: Limited insight present (Psych) Judgement: Limited judgement present (Psych) Course Reevaluation(s) Reevaluation #1: Patient has rested for 6 hours, she is awake, and oriented, she is no longer agitated or restless. She is calm and cooperative. I discussed addiction with the patient. She admits to taking substances earlier prior to arrival. She has no interest in speaking with the care team or addiction medicine. I informed her that her boyfriend and her mother both called the hospital expressing interested in the patient's substance abuse but the patient is adamant she does not want to speak with the care team or addiction medicine. The patient is not suicidal, she feels comfortable with discharge and I do not feel it is appropriate to hold her against her will. Time: 20:16 Medications Administered Discontinued Medications Generic Name Dose Route Start Last Admin Trade Name Swati PRN Reason Stop Dose Admin Lorazepam 2 mg 04/03/25 13:42 04/03/25 13:54 Lorazepam 1 Mg Tablet PO 04/03/25 13:43 2 mg ONCE ONE Administration Olanzapine 20 mg 04/03/25 14:03 04/03/25 14:23 Olanzapine Odt 10 Mg Tab.Rapdis TRANSLINGU 04/03/25 14:04 20 mg ONCE ONE Administration Medical Decision Making Medical Decision Making MDM Narrative: 34-year-old female presents for evaluation of suspected substance abuse by bystanders. The patient is awake, alert. She is quite restless, animated and agitated though cooperative. She reports that she feels well but did not explicitly admit to using substances. Plan for basic minutes clearance including labs, tox screen, EKG. The patient will be given Ativan 2 mg orally Differential Diagnosis Differential Diagnoses: The differential diagnosis associated with the presentation includes Agitation Acute psychosis Substance abuse Overdose Lab Data 04/03/25 15:20 04/03/25 15:20 Labs: Lab Results 04/03/25 Range/Units 15:20 WBC 7.6 (4.8-10.8) X10*3/uL RBC 3.85 L (4.20-5.50) X10*6/uL Hgb 10.4 L (12.0-16.0) g/dl Hct 33.0 L (37.0-47.0) % MCV 85.7 (80.0-98.0) fL MCH 27.0 (27.0-33.0) pg MCHC 31.5 (31.0-35.0) g/dl RDW 17.4 H (11.0-16.0) % Plt Count 242 (160-400) X10*3/uL MPV 10.9 (9.4-12.3) fL Immature Gran % (Auto) 0.8 H (0.0-0.4) % Neut % (Auto) 72.7 (45-73) % Lymph % (Auto) 18.3 L (20-40) % [place] % (Auto) 7.5 (2-11) % Eos % (Auto) 0.4 (0-4) % Baso % (Auto) 0.3 (0-2) % Lymph # (Auto) 1.4 (1.2-4.9) X10*3/uL [place] # (Auto) 0.6 (0.1-1.2) X10*3/uL Eos # (Auto) 0.0 (0.0-0.4) X10*3/uL Baso # (Auto) 0.0 (0.0-0.2) X10*3/uL Abs Immat Gran (auto) 0.06 H (0.00-0.03) X10*3/uL Absolute Neuts (auto) 5.5 (2.0-8.3) x10*3/uL Absolute Nucleated RBC 0.000 (0.0-0.012) X10*3/uL Nucleated RBC % (auto) 0.0 (0.0-0.2) /100WBC Sodium 142 (135-145) mmol/L Potassium 3.3 (3.3-5.1) mmol/L Chloride 107 (96-108) mmol/L Carbon Dioxide 26 (22-29) mmol/L Anion Gap 12 (12-20) BUN 15 (9-16) mg/dL Creatinine 1.01 (0.5-1.4) mg/dL Estim Creat Clear Calc 76.2 Estimated GFR > 60 Random Glucose 86 (60-115) mg/dL Calcium 8.9 D (8.4-10.2) mg/dL Total Bilirubin 0.3 (0.0-1.0) mg/dL AST 46 H (5-31) U/L ALT 24 (0-31) U/L Alkaline Phosphatase 62 (39-117) U/L Total Protein 7.6 (6.5-8.0) g/dL Albumin 4.6 (3.5-5.0) g/dL Salicylates < 5.0 L (15-30) mg/dL Acetaminophen < 3 (<30) mcg/mL Ethyl Alcohol < 10 mg/dL Discharge Plan Discharge Clinical Impression: Substance abuse Patient Disposition: Home, Self-Care Instructions: Polysubstance Use Disorder (ED) Additional Instructions: You declined to speak with our care team or addiction medicine team. You may return to the ER if you change your mind. I recommend he call 911 or present directly to the hospital if you have any thoughts of harming herself or anybody else Prescriptions: No Action amoxicillin-pot clavulanate 875-125 mg Tablet 1 tab PO BID 4 Days Qty: 8 0RF prazosin 1 mg Capsule 1 mg PO BEDTIME 30 Days Qty: 30 1RF Protocol: Hold for SBP< HOLD for SBP < : 90 perphenazine 2 mg Tablet 2 mg PO BID 30 Days Qty: 60 1RF trazodone 50 mg Tablet 50 mg PO BEDTIME MRX1 PRN (Reason: insomnia) 30 Days Qty: 60 1RF Print Language: Tuvaluan
--- NOTE | 2025-04-03 14:12 | PC.NURSE ---
Mother called and informed of pt status at this time. Mom states she does not want pt to be DC'd and wants pt to receive help and be admitted for JEFFY.Aimee econtact mother before any dc planning.
[2025-04-03] MEDS: OLANZapine ODT 10 MG TAB.RAPDIS 20 MG TRANSLINGU (14:23)
[2025-04-03 15:25] LABS: MANUAL DIFF FLAG NO
[2025-04-03 15:29] LABS: Basophils Percent Auto 0.3 % (0-2); Eosinophils Percent Auto 0.4 % (0-4); Hemoglobin 10.4 g/dl (12.0-16.0); Imm Gran Abs Auto 0.06 X10*3/uL (0.00-0.03); Imm Gran Pct Auto 0.8 % (0.0-0.4); Lymphocytes Absolute Auto 1.4 X10*3/uL (1.2-4.9); Lymphocytes Percent Auto 18.3 % (20-40); Mean Corpuscular HGB Conc 31.5 g/dl (31.0-35.0); Mean Corpuscular Volume 85.7 fL (80.0-98.0); Mean Platelet Volume 10.9 fL (9.4-12.3); Monocytes Absolute Auto 0.6 X10*3/uL (0.1-1.2); Monocytes Percent Auto 7.5 % (2-11); Neutrophils Absolute Auto 5.5 x10*3/uL (2.0-8.3); Neutrophils Percent Auto 72.7 % (45-73); Platelet Count 242 X10*3/uL (160-400); Red Blood Count 3.85 X10*6/uL (4.20-5.50); Red Cell Distribution Width 17.4 % (11.0-16.0); White Blood Count 7.6 X10*3/uL (4.8-10.8)
--- NOTE | 2025-04-03 15:30 | PC.NURSE ---
Resumed care of patient at 1500, she is currently more calm and cooperative. This RN and 2 tech were in room and able to obtain blood work. Jose Armando POLK reporting that he is not concerned of urine sample at this time. Awaiting pt to become more alert and oriented to decide dispo plan
[2025-04-03 15:43] LABS: Alanine Aminotransferase 24 U/L (0-31); Albumin Level 4.6 g/dL (3.5-5.0); Alkaline Phosphatase 62 U/L (39-117); Anion Gap 12 (12-20); Aspartate Amino Transferase 46 U/L (5-31); Bilirubin Total 0.3 mg/dL (0.0-1.0); Blood Urea Nitrogen 15 mg/dL (9-16); Calcium 8.9 mg/dL (8.4-10.2); Carbon Dioxide 26 mmol/L (22-29); Chloride 107 mmol/L (96-108); Creatinine Clr Calc Pharmacy 76.2; Estimated Glomerular Filt Rate > 60; Ethanol < 10 mg/dL; Glucose Random 86 mg/dL (60-115); Potassium 3.3 mmol/L (3.3-5.1); Sodium 142 mmol/L (135-145); Total Protein 7.6 g/dL (6.5-8.0)
[2025-04-03 16:13] LABS: Acetaminophen LAB < 3 mcg/mL (<30); Salicylate < 5.0 mg/dL (15-30)
--- NOTE | 2025-04-03 16:29 | MHC.EDTECH ---
Vitals was completed, 1:1 Sitter at bedside, Pt is sleeping at the moment.
--- NOTE | 2025-04-03 16:38 | PC.NURSE ---
This RN talked with pts BF who was the one who called EMS. He does state that she has used heroin and cocaine in the past and he is thinking that she has relapsed and is using again. Pt has finally settled down in bed and is resting at this time. Pt JONNY did report she is not taking any medications for her mental health at this time.
--- OUTSIDE RECORDS SUMMARY | 2025-04-03 17:58 | XMS_ITS | Clinical Summary ---
Author Organization [employer] Address [address] [place] [address] Care Team Providers Care Business Agent Name Role Phone Unavailable Primary Care [...] ( season) 2024 10/04/2022, 10/18/2021 Influenza Vaccine (Season Ended) 2025 06/23/2017 DTaP/Tdap/Td Vaccines (7 - Td or [...] Years) and At-Risk Patients (6 to 49) Years Aged Out No longer eligible based on patient's age to complete this topic RSV under 20 months Aged Out No longe r eligible based on patient's age to complete this topic Rotavirus Vaccines Aged Out No longer eligible based on patient's age to complete this topic Insurance [facility]
== END 2025-04-03 20:52 | disposition home or self-care (01) ==
PROVIDERS: Physician Assistant; Emergency Provider Emergency Medicine
DX: R41.82 Altered mental status, unspecified (principal); R00.0 Tachycardia, unspecified; Z51.81 Encounter for therapeutic drug level monitoring; Z79.899 Other long term (current) drug therapy
CPT/HCPCS: 36415; 80053; 80143; 80179; 80307; 85025; 93005; 99283; 99285

== ENCOUNTER → 2025-04-03 13:42 | Outpatient (BNV) | payer OTHER, SELFPAY | PROVIDERS: Emergency Provider Emergency Medicine; Visit Provider Internal Medicine | DX: R00.0 Tachycardia, unspecified (principal) | CPT/HCPCS: 93010 ==

== ENCOUNTER 2025-04-05 22:14 | Emergency (ER) | payer OTHER, SELFPAY ==
[2025-04-05 22:59] VITALS: BP 181/91; PULSE 100; RESP 19; TEMP 36.9; O2SAT 95; BMI 25.7
--- NOTE | 2025-04-05 23:06 | PC.NURSE ---
Addendum entered by Anabel Aguirre RN 04/06/25 00:24: pt refusing lab draw, explained and educated the pt on the importance of having labs drawn yet pt still refusing. Original Note: spoke with pts mother and states this is pts second episode of erratic behavior since . pts mother suspects she is on heroin, cocaine or a combination of both. Mother states they were having a bbq today and pt suddenly became erratic.
--- NOTE | 2025-04-05 23:39 | ED_ITS ---
HPI - Alcohol General Chief Complaint: ETOH/Substance Use Stated Complaint: police custody heroin use , etoh, psych Time Seen by Provider: 04/05/25 23:31 History of Present Illness HPI narrative: Patient is 34 years old presents today because she was agitated at her mom's barbecue. PD was called patient was sent to the ED. admits to drinking alcohol denies using recreational drugs but has a history of recreational drug use including opioids and potentially cocaine. Patient is not suicidal not homicidal. Had decreased respiration noted by family they threw water at her she woke up. Related Data Previous Rx's ?Medication ?Instructions ?Recorded amoxicillin 875 mg-potassium 1 tab PO BID 4 days #8 ta bs 06/13/24 clavulanate 125 mg tablet perphenazine 2 mg tablet 2 mg PO BID 30 days #60 tabs 06/13/24 prazosin 1 mg capsule 1 mg PO BEDTIME 30 days #30 caps 06/13/24 trazodone 50 mg tablet 50 mg PO BEDTIME MRX1 PRN in somnia 06/13/24 30 days #60 tabs Allergies Allergy/AdvReac Type Severity Reaction Status Date / Time latex (LATEX) Allergy Unknown RASH Verified 04/05/25 23:01 latex Allergy Unknown hives Uncoded 04/05/25 23:01 Review of Systems Review of Systems: Patient denies recreational drugs admits to drinking alcohol Yes all other systems are reviewed and are negative [facility] Past Medical History Attestation statement: The following information was validated with the patient. Medical History PTSD (post-traumatic stress disorder) Schizophrenia IV drug user Social History Social History Household Members: Family Housing: Condominium Do you presently have visiting nurse or other home services: Yes Unable to assess alcohol history related to: Refusing to respond Patient Tobacco Use Status: Refuse Tobacco use screen Smoked in Last 30 Days: Yes Use of substances other than those prescribed or required for medical reasons: Yes Substance Use Type: Marijuana Advance Directives: Yes Advance Directives on File: Yes Advance Directives Date on File: 06/11/24 Patient : No service: No Physical Exam ED Vital Signs: Vital Signs - 24 hr 04/05/25 22:59 04/06/25 00:34 04/06/25 04:39 Temperature 98.5 F 98.1 F 97.3 F Pulse Rate 100 77 87 Respiratory Rate 19 19 Blood Pressure 181/91 H 143/83 H 131/63 Pulse Oximetry 95 96 98 Oxygen Delivery Method Room Air Room Air Room Air 04/06/25 06:23 04/06/25 13:54 Temperature 97.6 F 97.9 F Pulse Rate 64 61 Respiratory Rate 16 Blood Pressure 150/82 H 157/77 H Pulse Oximetry 98 99 Oxygen Delivery Method Room Air Room Air BMI result Body Mass Index 25.7 Appearance: Alert. Oriented X3. No acute distress. Eyes: Pupils equal, round and reactive to light. ENT: Pharynx normal. Neck: Normal inspection. Neck supple. No lymph nodes noted. No crepitus CVS: Normal heart rate and rhythm. Pulses normal. Normal S1 and S2 Respiratory: No respiratory distress. Breath sounds normal. No Wheezing. No rales Abdomen: Soft and nontender. No rigidity. No distention. good BS x4 Skin: Skin warm and dry. Normal skin color. Normal skin turgor. Extremities: No lower extremity edema. Neurovascular intact to all extremities. No Lacerations. No Rash Neuro: Oriented X 3. No motor deficit. No sensory deficit. Moving all extermities. No slurred speech Course Reevaluation(s) Reevaluation #1: 04/06/2025 14;30 DR. Campbell's Progress note: VSS, labs were reviewed within baseline, still pending care team evaluation, patient is section 12, will continue with physician observation. Time: 14:30 Medical Decision Making Medical Decision Making MDM Narrative: CARE team: this is the 4th time in 1 month that the Patient comes to the emergency room with the same complaint: for drug abuse, refusing labs every time, then leaves AMA patient is awake, alert and oriented x3. No SI, no HI, refusing lab work, drug screen. The care team informed me that the patient's family wants her to be admitted to the psychiatric floor. However, patient is refusing. The care team discussed with the patient's family to start a section 35 The care team spoke with the patient, patient is awake, alert and oriented x3, coherent, denies SI or HI. Patient admits to polysubstance abuse. However, patient is adamant that she does not want any help Patient states that she feels well and would like to be discharged home. As mentioned above, we were not able to get any lab work done, patient refused. From previous lab work in 2023, we know that patient abuses opiates/fentanyl, cocaine at this time, 17:13, ending observation time Differential Diagnosis Differential Diagnoses: The differential diagnosis associated with the presentation includes ( alcohol abuse, polysubstance abuse, anxiety, depression) Consult Healthcare Provider Management of the patient was discussed with: Film Writer (Care team) Lab Data MDM Lab Attestation statement: I reviewed the patient's lab results. External Record Review External record reviewed: Inpatient record Chronic Conditions History of schizophrenia previous history of recreational drug use Social Determinants Patient?s care significantly limited by Social Determinants of Health including: Alcoholism and drug addiction in family and Problems related to primary support group Discharge Plan Discharge Clinical Impression: Drug overdose Patient Disposition: Home, Self-Care Instructions: Polysubstance Use Disorder (ED) Additional Instructions: Opiate use disorder You were seen in our Emergency Department today for treatment of opiate use disorder. You may have been dosed with medication for opiate use disorder (MOUD) in the form of suboxone or methadone. You may experience feeling some withdrawal symptoms and this is normal. The? dos e in the Emergency Department is a starting dose and meant to be titrated up once you follow up with a clinic. Please do not feel discouraged, it is a process. The nurse has reviewed with you where to follow up and what information to bring with you, to continue treatment. You also may have been given naloxone (narcan) to take home with you. This medication is used to potentially treat opiate overdose. If you decide you want to stop or cut down on how much you?re using, you can call or walk into our outpatient Addiction Treatment office: [facility] (M-F 9am-5p) [address] [place] [address], [address] [phone] You may have been provided with safer injection?items, please take time to take care of YOU and your health. Use new supplies whenever possible to lessen the chances of infections and other illnesses.? ?If you need more supplies, please go [facility],? [address], [place] you can call or text to coordinate delivery of safer supplies. You were also provided a list of several treatment providers in the area.? If you experience any worsening symptoms you cannot control please return to the ED or call 911. Please follow up at your next appointment. Things to look out for are fevers, chest pain, shortness of breath, severe pain, dizziness, fainting or any other concerns. Prescriptions: No Action amoxicillin-pot clavulanate 875-125 mg Tablet 1 tab PO BID 4 Days Qty: 8 0RF prazosin 1 mg Capsule 1 mg PO BEDTIME 30 Days Qty: 30 1RF Protocol: Hold for SBP< HOLD for SBP < : 90 perphenazine 2 mg Tablet 2 mg PO BID 30 Days Qty: 60 1RF trazodone 50 mg Tablet 50 mg PO BEDTIME MRX1 PRN (Reason: insomnia) 30 Days Qty: 60 1RF Print Language: Czech
[2025-04-06 00:34] VITALS: BP 143/83; PULSE 77; RESP 19; TEMP 36.7; O2SAT 96
--- NOTE | 2025-04-06 00:51 | MHC.EDTECH ---
patient refused labs to be drawn, educated on why labs need to be drawn, patient understood and continued to refuse. RN aware
[2025-04-06 04:39] VITALS: BP 131/63; PULSE 87; TEMP 36.3; O2SAT 98
[2025-04-06 06:23] VITALS: BP 150/82; PULSE 64; TEMP 36.4; O2SAT 98
--- NOTE | 2025-04-06 06:24 | MHC.EDTECH ---
Patient refused Lab work at this time.
--- NOTE | 2025-04-06 07:30 | MHC.EDTECH ---
pt continues to refuse labs and EKG
--- NOTE | 2025-04-06 07:47 | PC.NURSE ---
pt currently sleeping, rr equal/non labored, vitals stable, pt has 1:1 sitter-section 12 by PD. per report this morning pt has been refusing labs, care team consult in, plan of care ongoing
--- NOTE | 2025-04-06 07:49 | PC.NURSE ---
pt currently sleeping, rr equal/non labored, lungs clear, vss, pt awaiting care team consult, 1:1 sitter due to prior SI statements, plan of care ongoin
--- NOTE | 2025-04-06 13:43 | MHC.CARE ---
Addendum entered by Violet Velazquez [facility] 04/06/25 17:48: Patient evaluated and cleared for discharge. Original Note: CARE Team unable to wake patient for complete evaluation, will follow up when she is more alert and able to engage. ED provider, JAM Rendon updated
[2025-04-06 13:54] VITALS: BP 157/77; PULSE 61; RESP 16; TEMP 36.6; O2SAT 99
--- NOTE | 2025-04-06 13:54 | PC.NURSE ---
pt sleeping, wakes to verbal stimulus, pt refusing to converse with this nurse- refuses to answer si/hi questions, continues to refuse urine and blood draw, vitals stable, plan of care ongoing
--- NOTE | 2025-04-06 17:11 | PC.NURSE ---
Addendum entered by Audra Garza RN 04/06/25 17:25: pt ultimately refused the draw again. pt will discharge Original Note: pt allowed lab draws, care team spoke with patient and provider, pt will discharge
[2025-04-06 17:25] VITALS: BP 151/78; PULSE 66; RESP 16; TEMP 36.3; O2SAT 99
--- NOTE | 2025-04-07 13:16 | MHC.CARE ---
[facility] referral complete
== END 2025-04-06 17:26 | disposition home or self-care (01) ==
PROVIDERS: Emergency Provider Emergency Medicine Emergency Medical Services
DX: T40.1X1A Poisoning by heroin, accidental (unintentional), initial encounter (principal); Y92.9 Unspecified place or not applicable; F11.10 Opioid abuse, uncomplicated; F10.10 Alcohol abuse, uncomplicated; Y90.9 Presence of alcohol in blood, level not specified; Z71.51 Drug abuse counseling and surveillance of drug abuser
CPT/HCPCS: 99284; 99285; S9485

== ENCOUNTER 2025-04-21 12:41 | Emergency (ER) | payer OTHER, SELFPAY ==
--- NOTE | 2025-04-21 12:55 | ED.OVERDOSE ---
HPI - Overdose General Chief Complaint: Overdose Stated Complaint: OD,8MG NARCAN GIVEN W/GOOD RESULT PER EMS Source: patient, EMS and old records reviewed Mode of arrival: EMS Limitations: no limitations History of Present Illness ED Provider: LISA HPI Narrative: 35 yo female with PMH of PTSD, opiate use disorder who states she was smoking heroin and overdosed. She denies trauma, assault. She has no SI/HI. She was given rescue 8mg narcan with good effect. She states she does not want MAT therapy, detox or SUDE evaluation. She agrees to stay for one hour. We have seen her in the past for same. complaint: accidental overdose Onset (ago): minute(s) (ACTIVITY LEADER) Context: Accidental Overdose: wanted to get high Treatments Prior to Arrival: narcan Related Data Previous Rx's ?Medication ?Instructions ?Recorded amoxicillin 875 mg-potassium 1 tab PO BID 4 days #8 tabs 06/13/24 clavulanate 125 mg tablet perphenazine 2 mg tablet 2 mg PO BID 30 days #60 tabs 06/13/24 prazosin 1 mg capsule 1 mg PO BEDTIME 30 days #30 caps 06/13/24 trazodone 50 mg tablet 50 mg PO BEDTIME MRX1 PRN insomnia 06/13/24 30 days #60 tabs Allergies Allergy/AdvReac Type Severity Reaction Status Date / Time latex (LATEX) Allergy Unknown RASH Verified 04/21/25 13:03 latex Allergy Unknown hives Uncoded 04/21/25 13:03 Review of Systems Review of Systems: Constitutional : No Fever, No Chills, No Fatigue ENT/Mouth : No sore throat, No Rhinorrhea Eyes: No Eye Pain, No Swelling, No Redness Cardiovascular : No Chest Pain, No SOB, No Dyspnea on Exertion Respiratory : No Cough, No Sputum Gastrointestinal : No Nausea, No Vomiting, No Diarrhea, No abdominal Pain Genitourinary : No Dysuria, No Urinary Frequency, No Hematuria, Musculoskeletal : No joint pain, No Myalgias, No Joint Swelling Skin : No Skin Lesions, No rash Neuro : No Weakness, No Numbness, No Dizziness, no Headache All other systems reviewed and are negative [facility] Past Medical History Attestation statement: The following information was validated with the patient. Source: old records reviewed Medical History PTSD (post-traumatic stress disorder) Schizophrenia IV drug user Social History Social History Household Members: Family Housing: Condominium Do you presently have visiting nurse or other home services: Yes Unable to assess alcohol history related to: Refusing to respond Patient Tobacco Use Status: Refuse Tobacco use screen Smoked in Last 30 Days: Yes Use of substances other than those prescribed or required for medical reasons: Yes Substance Use Type: Crack/Cocaine and Marijuana Advance Directives: Yes Advance Directives on File: Yes Advance Directives Date on File: 06/11/24 Do you have a plan to hurt others: No Plan Patient : No service: No Physical Exam Vital Signs: Vital Signs: Last Vital Signs Temp 97.1 F 04/21/25 14:41 Pulse 91 04/21/25 14:41 Resp 13 04/21/25 14:41 BP 142/81 H 04/21/25 14:41 Pulse Ox 100 04/21/25 14:41 O2 Del Method Room Air 04/21/25 14:41 BMI result Body Mass Index 22.7 Appearance: Alert. Oriented X3. No acute distress. Eyes: Pupils equal, round and reactive to light. ENT: Pharynx normal. atraumatic Neck: Normal inspection. Neck supple. CVS: Normal heart rate and rhythm. Pulses normal. Respiratory: No respiratory distress. Breath sounds normal. Abdomen: Soft and nontender. Skin: Skin warm and dry. Normal skin color. Normal skin turgor. covered in sand Extremities: No lower extremity edema. No calf ttp Neuro: Oriented X 3. No motor deficit. No sensory deficit. CN2-12 intact Course Course Course Narrative: no need for narcan Medical Decision Making Medical Decision Making MDM Narrative: 35 yo female with PMH of PTSD, opiate use disorder here with accidental opiate overdose she is alert and oriented denies trauma at this time will offer services which she has refused and start on home narcan. She has no SI/HI. Differential Diagnosis Differential Diagnoses: The differential diagnosis associated with the presentation includes opiate use disorder Admission/Observation Consideration of admission/observation: Escalation of care including admission/observation considered refuses interventions Independent Historian Clinical information obtained from an independent historian. History obtained from or confirmed by: EMS External Record Review External record reviewed: Inpatient record and Outpatient record Social Determinants Patient?s care significantly limited by Social Determinants of Health including: Problems related to primary support group Discharge Plan Discharge Clinical Impression: Drug overdose Qualifiers: Encounter type: initial encounter Injury intent: accidental or unintentional Qualified Code(s): T50.901A - Poisoning by unspecified drugs, medicaments and biological substances, accidental (unintentional), initial encounter Patient Disposition: Home, Self-Care Instructions: Adult Overdose (ED) Additional Instructions: Overdose You were seen in our Emergency Department for an overdose today. You received narcan in order to reverse the effects of overdose. Narcan only lasts about 45 min to 1 hour in the system. You may have been given narcan to take home with you today, please keep it near you if you are going to use again, so others can use it if needed.? The number one risk for fatal overdose is using alone? [facility] is a / hotline where you can be on the phone with someone while you use, and they can call for help if they suspect an overdose: [phone] Things to look out for when you leave include severe vomiting or diarrhea, headaches, muscle cramps, fever, coughing, chest pain, or if you feel so short of breath you cannot walk to the bathroom. Please seek care and return any time for worsening symptoms.? You may have been provided with safer injection?items, please take time to take care of YOU and your health. Use new supplies whenever possible to lessen the chances of infections and other illnesses.? If you need more supplies, please go [facility],? [address] [place] [address] [place] you can call or text to coordinate delivery of safer supplies. If you decide you want to stop or cut down on how much you?re using, please call the numbers on the list provided to you or you can come to our outpatient Addiction Treatment office [facility] (M-F 9am-5p) [address], [address] [place] [address]. [phone] Prescriptions: No Action amoxicillin-pot clavulanate 875-125 mg Tablet 1 tab PO BID 4 Days Qty: 8 0RF prazosin 1 mg Capsule 1 mg PO BEDTIME 30 Days Qty: 30 1RF Protocol: Hold for SBP< HOLD for SBP < : 90 perphenazine 2 mg Tablet 2 mg PO BID 30 Days Qty: 60 1RF trazodone 50 mg Tablet 50 mg PO BEDTIME MRX1 PRN (Reason: insomnia) 30 Days Qty: 60 1RF Interventions: ED Discharge Assessment Last Done: 04/21/25 14:37 Discharge Date/Time: 04/21/25 15:02 Print Language: Turkmen
[2025-04-21 13:00] VITALS: BP 134/78; BP 151/96; PULSE 110; PULSE 94; RESP 16; TEMP 36.5; O2SAT 98; BMI 22.7
[2025-04-21 13:04] VITALS: BP 134/78; PULSE 94; RESP 16; TEMP 36.5; O2SAT 98
[2025-04-21 14:36] VITALS: BP 134/78; PULSE 94; RESP 16; TEMP 36.5; O2SAT 98
[2025-04-21 14:37] VITALS: BP 134/78; PULSE 94; RESP 16; TEMP 36.5; O2SAT 98
--- NOTE | 2025-04-21 14:38 | PC.NURSE ---
Patient presents to ED after experiencing a overdose after smoking a blunt. Patient received 8mg of narcan on scene. Patient awoke when being placed onto stretcher. Denies Pain, SOB, dizziness, lightheadedness, and n/v. Patient changed over by security. Patient denies wanting recovery services. VSS. Patient to be discharged with emergency narcan
[2025-04-21 14:41] VITALS: BP 142/81; PULSE 91; RESP 13; TEMP 36.2; O2SAT 100
--- OUTSIDE RECORDS SUMMARY | 2025-04-21 16:02 | XMS_ITS | Clinical Summary ---
Author Organization [employer] Address [address] [address] [place] [address] Care Team Providers Care Venture Capital Analyst Name Role Phone Unavailable Primary Care Provider [...] season) 2024 10/04/2022, 10/18/2021 Influenza Vaccine (#1) 2025 06/23/2017 DTaP/Tdap/Td Vaccines (7 - Td [...] patient's age to complete this topic Insurance [facility]
--- OUTSIDE RECORDS SUMMARY | 2025-04-21 16:02 | XMS_ITS | Encounter Summary ---
Author Organization [facility] Address [address] [place] [id number] Phone Care Team Providers Care Instrument Lens Grinder Name Role Phone Unavailable Primary Care Provider Unavailabl e Encounter Details Date Type Department Care Team (Late st Contact Info) Description 08/10/2017 Conversion Encounter [facility] - [address] [id number] Social History Tobacco Use Types Packs/Day Years [...]
== END 2025-04-21 15:02 | disposition home or self-care (01) ==
LOC: HO.ED 14:47
PROVIDERS: Emergency Provider Emergency Medicine
DX: T40.1X1A Poisoning by heroin, accidental (unintentional), initial encounter (principal); Y92.9 Unspecified place or not applicable
CPT/HCPCS: 99283; 99285

== ENCOUNTER 2025-04-27 21:35 | Emergency (ER) | payer OTHER, SELFPAY ==
[2025-04-27 21:40] VITALS: BP 153/90; BP 174/68; PULSE 92; PULSE 95; RESP 14; TEMP 37; O2SAT 95; O2SAT 96; BMI 23.5
[2025-04-27 21:48] VITALS: BP 153/90; PULSE 95; RESP 14; TEMP 37; O2SAT 95
--- NOTE | 2025-04-27 21:50 | PC.NURSE ---
PAtient presents to EDafter being found in bushes unconscious by PD. 4mg narcan administered, patient became arousable. Patient states she was smoking a blunt and doesnt remember what happened after that. HX crack and weed use. Denies pain. patient hypertensive 153/90 all other VSS. Denies Si,HI, refusing detox services at this time. Patient resting on stretcher at this time
[2025-04-27 22:30] VITALS: BP 145/76; PULSE 95; RESP 18; TEMP 36.4; O2SAT 97
--- NOTE | 2025-04-27 22:37 | ED_ITS ---
HPI - Overdose General Chief Complaint: Overdose Stated Complaint: etoh, drug use Time Seen by Provider: 04/27/25 22:32 Source: EMS Mode of arrival: EMS Limitations: no limitations History of Present Illness ED Provider: HPI Narrative: 35 yo female with PMH of PTSD, opiate use disorder who states she was smoking heroin and overdosed. She denies trauma, assault. She has no SI/HI. She was given rescue 4mg narcan with good effect. She states she does not want MAT therapy, detox or SUDE evaluation. Related Data Home Medications ?Medication ?Instructions ?Recorded ?Confirmed ibuprofen 200 mg tablet 400 mg PO Q6H PRN Pain 04/2804/28/25 quetiapine 200 mg tablet 200 mg PO BEDTIME 04/28/25 0 04/28/25 Allergies Allergy/AdvReac Type Severity Reaction Status Date / Time latex (LATEX) Allergy Unknown RASH Verified 04/27/25 21:43 latex Allergy Unknown hives Uncoded 04/27/25 21:43 Review of Systems 2 Constitutional: Constitutional: Reports as per [facility] Past Medical History Medical History PTSD (post-traumatic stress disorder) Schizophrenia IV drug user Social History Social History Household Members: Family Housing: Condominium Do you presently have visiting nurse or other home services: Yes Unable to assess alcohol history related to: Refusing to respond Patient Tobacco Use Status: Refuse Tobacco use screen Smoked in Last 30 Days: Yes Use of substances other than those prescribed or required for medical reasons: Yes Substance Use Type: Crack/Cocaine and Marijuana Advance Directives: Yes Advance Directives on File: Yes Advance Directives Date on File: 06/11/24 Do you have a plan to hurt others: No Plan Patient : No service: No Physical Exam 2 Vital Signs: Vital Signs: Last Vital Signs Temp 97.8 F 04/29/25 10:46 Pulse 75 04/29/25 10:46 Resp 24 H 04/29/25 10:46 BP 154/102 H 04/29/25 10:46 Pulse Ox 100 04/29/25 10:46 O2 Del Method Room Air 04/29/25 10:46 BMI result Body Mass Index 23.5 Const: Other: Patient is easily arousable and able to talk but without verbal stimulation becomes very sleepy without any respiratory distress No obvious trauma with a head and neck Pupils 2 mm reactive She is noted to be moving upper and lower extremities symmetrically She is otherwise unkempt No SI or HI no Course Reevaluation(s) Reevaluation #1: 13:00 SINCE SLEEPING WAITING THAT SHE IS MORE AWAKE WE WILL GET SOME BLOOD WORK WELL Time: 13:29 Reevaluation #2: Patient was evaluated by crisis at this time she is now having a slight out she will be placed in a Section 12 bed search Time: 15:03 Reevaluation #3: Time: 07:13 Date: 04/29/25 Provider: Sohail Rubin MD Patient in physician observation for psychiatric evaluation.? No acute events reported overnight. No current complaints. VS stable.? Patient is in bed search status/pending CARE team evaluation. Will continue to monitor. Additional Reevaluation(s): 11:44 04/29/2025 patient will be transferred to [facility] this will end the ED observation status Medications Administered Discontinued Medications Generic Name Dose Route Start Last Admin Trade Name Swati PRN Reason Stop Dose Admin Lorazepam 1 mg 04/29/25 10:28 04/29/25 10:41 Lorazepam 1 Mg Tablet PO 04/29/25 10:29 1 mg ONCE ONE Administration Medical Decision Making Medical Decision Making MDM Narrative: Patient found overdosed, received 4 mg of Narcan out in the field, is able to provide history but very quickly once not verbally stimulated becomes very sleepy and lethargic without any respiratory compromise, did not feel that at this time is necessary to reverse her, she is clearly without permanent housing and we will let her sleep, we will monitor, and I have more awake we will again ask her if she is interested in substance use disorder treatment. 06:40 patient is still sleeping, but has been monitored has had stable vital signs we will sign out patient pending sobriety and disposition Differential Diagnosis Differential Diagnoses: The differential diagnosis associated with the presentation includes (Trauma, overdose, physical assault, sexual assault) Admission/Observation Consideration of admission/observation: Escalation of care including admission/observation considered (Not interested in intervention) 2022 Emergency Medicine Coding Guide from [employer] on 04/27/2025 All calculations should be rechecked by clinician prior to use RESULT SUMMARY: 4 Estimated Level of Service Problems: Moderate (4) Risk: Moderate (4) Data: Limited (3) NARRATIVE MDM: This patient's problem complexity is Moderate as patient: has an acute complicated injury requiring significant evaluation or with concern for morbidity or multiple treatment options. This patient's risk is Moderate due to: overall presentation requiring evaluation for a potentially Moderate-risk process. This patient's data complexity is Limited due to: -independent historian used to support history INPUTS: Number and Complexity ?> 7 = 4: acute, complicated injury (g) Risk level ?> 3 = Moderate Tests ordered ?> 0 = 0 Tests results reviewed (excluding labs) ?> 0 = 0 Prior external notes reviewed ?> 0 = 0 Assessment requiring and independent historian ?> 1 = Yes Independent interpretation of tests ?> 0 = No Discussed management/test interpretation w/external professional ?> 0 = No Lab Data 04/28/25 16:06 04/28/25 16:06 Labs: Lab Results 04/28/25 04/28/25 Range/Units 16:06 16:48 WBC 5.3 (4.8-10.8) X10*3/uL RBC 4.58 (4.20-5.50) X10*6/uL Hgb 12.2 (12.0-16.0) g/dl Hct 38.1 (37.0-47.0) % MCV 83.2 (80.0-98.0) fL MCH 26.6 L (27.0-33.0) pg MCHC 32.0 (31.0-35.0) g/dl RDW 17.2 H (11.0-16.0) % Plt Count 341 D (160-400) X10*3/uL MPV 10.1 (9.4-12.3) fL Immature Gran % (Auto) 0.4 (0.0-0.4) % Neut % (Auto) 62.2 (45-73) % Lymph % (Auto) 26.3 (20-40) % [place] % (Auto) 8.1 (2-11) % Eos % (Auto) 2.6 (0-4) % Baso % (Auto) 0.4 (0-2) % Lymph # (Auto) 1.4 (1.2-4.9) X10*3/uL [place] # (Auto) 0.4 (0.1-1.2) X10*3/uL Eos # (Auto) 0.1 (0.0-0.4) X10*3/uL Baso # (Auto) 0.0 (0.0-0.2) X10*3/uL Abs Immat Gran (auto) 0.02 (0.00-0.03) X10*3/uL Absolute Neuts (auto) 3.3 (2.0-8.3) x10*3/uL Absolute Nucleated RBC 0.000 (0.0-0.012) X10*3/uL Nucleated RBC % (auto) 0.0 (0.0-0.2) /100WBC Sodium 141 (135-145) mmol/L Potassium 3.1 L (3.3-5.1) mmol/L Chloride 107 (96-108) mmol/L Carbon Dioxide 26 (22-29) mmol/L Anion Gap 11 L (12-20) BUN 9 (9-16) mg/dL Creatinine 0.64 (0.5-1.4) mg/dL Estim Creat Clear Calc 119.3 Estimated GFR > 60 Random Glucose 122 H (60-115) mg/dL Calcium 8.7 (8.4-10.2) mg/dL Total Bilirubin 0.6 (0.0-1.0) mg/dL AST 39 H (5-31) U/L ALT 25 (0-31) U/L Alkaline Phosphatase 59 (39-117) U/L Total Protein 7.4 (6.5-8.0) g/dL Albumin 4.1 (3.5-5.0) g/dL Urine Color Dark Yellow Urine Appearance Clear Urine pH 6.0 (5.0-9.0) Ur Specific [place] >= 1.030 H (1.005-1.025) Urine Protein 30 (1+) H (Neg-Trace) mg/dL Urine Glucose (UA) Negative (Negative) mg/dL Urine Ketones 15 (Negative) mg/dL Urine Blood Negative (Negative) Urine Nitrite Negative (Negative) Ur Leukocyte Esterase Negative (Negative) Urine RBC 0-2 (0-2) /HPF Urine WBC 0-5 (0-5) /HPF Ur Squamous Epith Cells 6-10 (0-2) /HPF Urine Bacteria 1+ (None Seen) Hyaline Casts 3-5 (0-2) /LPF Urine Test NEGATIVE (NEGATIVE) Urine Opiates Screen POSITIVE H (Not Detect) Ur Buprenorphine Scrn Not Detected (Not Detect) ng/mL Ur Oxycodone Screen Not Detected (Not Detect) ng/mL Urine Methadone Screen Not Detected (Not Detect) ng/mL Urine Fentanyl Screen POSITIVE H (Not Detect) Ur Barbiturates Screen Not Detected (Not Detect) Ur Phencyclidine Scrn Not Detected (Not Detect) Ur Amphetamines Screen Not Detected (Not Detect) U Benzodiazepines Scrn Not Detected (Not Detect) Urine Cocaine Screen POSITIVE H (Not Detect) U Marijuana (THC) Screen Not Detected (Not Detect) Ethyl Alcohol < 10 mg/dL Social Determinants Patient?s care significantly limited by Social Determinants of Health including: Inadequate housing, Low income and Other Social Determinant of Health (Polysubstance use disorder) Discharge Plan Discharge Clinical Impression: Opioid use disorder Drug overdose Qualifiers: Encounter type: initial encounter Injury intent: accidental or unintentional Q ualified Code(s): T50.901A - Poisoning by unspecified drugs, medicaments and biological substances, accidental (unintentional), initial encounter Depression Qualifiers: Depression Type: unspecified Qualified Code(s): F32.A - Depression, unspecified Patient Disposition: er Psychiatric Hosp Transfer Details: [facility] Additional Instructions: Opiate use disorder You were seen in our Emergency Department today for treatment of opiate use disorder. You may have been dosed with medication for opiate use disorder (MOUD) in the form of suboxone or methadone. You may experience feeling some withdrawal symptoms and this is normal. The? dose in the Emergency Department is a starting dose and meant to be titrated up once you follow up with a clinic. Please do not feel discouraged, it is a process. The nurse has reviewed with you where to follow up and what information to bring with you, to continue treatment. You also may have been given naloxone (narcan) to take home with you. This medication is used to potentially treat opiate overdose. If you decide you want to stop or cut down on how much you?re using, you can call or walk into our outpatient Addiction Treatment office: [facility] (M-F 9am-5p) [address] [place] [address], [address] [phone] You may have been provided with safer injection?items, please take time to take care of YOU and your health. Use new supplies whenever possible to lessen the chances of infections and other illnesses.? ?If you need more supplies, please go [facility],? [address] [place], [place] you can call or text to coordinate delivery of safer supplies. You were also provided a list of several treatment providers in the area.? If you experience any worsening symptoms you cannot control please return to the ED or call 911. Please follow up at your next appointment. Things to look out for are fevers, chest pain, shortness of breath, severe pain, dizziness, fainting or any other concerns. Prescriptions: No Action quetiapine 200 mg tablet 200 mg PO BEDTIME ibuprofen 200 mg Tablet 400 mg PO Q6H PRN (Reason: Pain) Print Language: Micronesian
[2025-04-28] VITALS (8 sets, daily range): BP systolic 123–158; BP diastolic 71–92; PULSE 63–72; RESP 16–18; TEMP 36.4–36.8; O2SAT 95–100
--- OUTSIDE RECORDS SUMMARY | 2025-04-28 01:29 | XMS_ITS | Encounter Summary ---
Author Organization [facility] Address [address] [place] [phone] Phone Care Team Providers Care Tank Storage Supervisor Name Role Phone Unavailable Primary Care Provider Unavailabl e Encounter Details Date Type Department Care Team (Late st Contact Info) Description 08/10/2017 Conversion Encounter [facility] - [address] [address] Social History Tobacco Use Types Packs/Day Years [...]
--- NOTE | 2025-04-28 10:24 | PC.NURSE ---
CARE team to bedside for evaluation but pt remains asleep at this time. Will contact CARE team for Recovery consult when pt awakes. +chest rise/fall.
--- NOTE | 2025-04-28 12:02 | PC.NURSE ---
CARE team again to bedside, pt states interest in detox but jaclyn had no when asked about if she will be awake enough for consult
--- NOTE | 2025-04-28 13:21 | PC.NURSE ---
Attempted to wake patient with Dr. Rubin at bedside, however pt is still very somnolent. Awaiting new orders for labs.
--- NOTE | 2025-04-28 15:10 | MHC.CARE ---
CARE Team conducting SUDE with patient post accidental overdose, she endorsed suicidal ideation and will require a crisis evaluation. ED providers Dr. Rubin and MIN Day updated about change in status.
--- NOTE | 2025-04-28 15:57 | PHA.MEDREC ---
Addendum entered by Genesis Altamirano [facility] 04/28/25 16:05: REVIEWED BY PHARMACIST Original Note: Pharmacy Consult ? Medication Reconciliation Pharmacy has completed the medication reconciliation. Spoke with pt and she was a bit somnolent but stated she was taking Seroquel BID but didn't know the dose at this time; pt states she fills that at [facility] on [address] I called [facility] and they state the pt last got Quetiapine 200mg 1 @bedtime 11/14 #14 for 14 days; I added the Quetiapine 200mg tab 1 @bedtime per [facility] pharmacy.
[2025-04-28 16:13] LABS: MANUAL DIFF FLAG NO
[2025-04-28 16:16] LABS: Hematocrit 38.1 % (37.0-47.0); Hemoglobin 12.2 g/dl (12.0-16.0); Imm Gran Abs Auto 0.02 X10*3/uL (0.00-0.03); Imm Gran Pct Auto 0.4 % (0.0-0.4); Lymphocytes Absolute Auto 1.4 X10*3/uL (1.2-4.9); Mean Corpuscular HGB Conc 32.0 g/dl (31.0-35.0); Mean Corpuscular Hemoglobin 26.6 pg (27.0-33.0); Mean Corpuscular Volume 83.2 fL (80.0-98.0); NRBC Abs Auto 0.000 X10*3/uL (0.0-0.012); NRBC Pct Auto 0.0 /100WBC (0.0-0.2); Platelet Count 341 X10*3/uL (160-400); Red Blood Count 4.58 X10*6/uL (4.20-5.50); White Blood Count 5.3 X10*3/uL (4.8-10.8)
[2025-04-28 16:31] LABS: Alanine Aminotransferase 25 U/L (0-31); Albumin Level 4.1 g/dL (3.5-5.0); Alkaline Phosphatase 59 U/L (39-117); Anion Gap 11 (12-20); Aspartate Amino Transferase 39 U/L (5-31); Blood Urea Nitrogen 9 mg/dL (9-16); Calcium 8.7 mg/dL (8.4-10.2); Carbon Dioxide 26 mmol/L (22-29); Chloride 107 mmol/L (96-108); Creatinine Clr Calc Pharmacy 119.3; Estimated Glomerular Filt Rate > 60; Potassium 3.1 mmol/L (3.3-5.1); Sodium 141 mmol/L (135-145); Total Protein 7.4 g/dL (6.5-8.0)
--- NOTE | 2025-04-28 16:35 | PC.NURSE ---
After permission by the patient, I updated her mother that the patient was in the ED since last night. I informed the mother that the patient was going to [facility] to her with more specifics. Pt is an IP bed search
--- NOTE | 2025-04-28 16:50 | PC.NURSE ---
Pt brought over from pod in street clothes, not yet searched by security. Pt was escorted to bathroom by this RN and ANJANA Chaparro where her change-over was observed. Pt then showered and is now speaking on the phone with her mother. Pt is calm and cooperative, offering no complaints to this RN
[2025-04-28 17:04] LABS: Cannabinoid Screen Urine Not Detected (Not Detect)
[2025-04-28 17:13] LABS: Appearance Urine Clear; Glucose Urine UA Negative (Negative); PH 6.0 (5.0-9.0); Specific Gravity - Urine >= 1.030 (1.005-1.025); UMIC TRIGGER UACC YES
[2025-04-28 17:22] LABS: UPreg QC Valid YES
--- NOTE | 2025-04-28 18:18 | MHC.CARE ---
Patient evaluated by the CARE Team, disposition dual diagnosis inpatient treatment. Dr. Rubin updated.
--- NOTE | 2025-04-29 00:01 | PC.NURSE ---
Took over care from MIN Gaming, pt sleeping.
--- NOTE | 2025-04-29 02:39 | PC.NURSE ---
pt is sleeping.
--- NOTE | 2025-04-29 07:45 | ECG_ITS ---
Test Reason : prolonged qt Blood Pressure : */* mmHG Vent. Rate : 69 BPM Atrial Rate : 69 BPM P-R Int : 148 ms QRS Dur : 96 ms QT Int : 420 ms P-R-T Axes : 58 39 26 degrees QTcB Int : 450 ms Normal sinus rhythm Minimal voltage criteria for LVH, may be normal variant ( Sokolow-Noguera ) Borderline ECG When compared with ECG of 03-Apr-2025 14:09, Vent. rate has decreased by 34 bpm Nonspecific T wave abnormality, improved in Lateral leads Referred By: Sohail Rubin Electronically Signed By: Amadou Tellez
[2025-04-29 10:46] VITALS: BP 154/102; PULSE 75; RESP 24; TEMP 36.6; O2SAT 100
--- NOTE | 2025-04-29 11:51 | MHC.CARE ---
Patient has been accepted to [facility] for today. ETA is 3pm and the accepting provider is Dr. Balbuena. The address is [place] [address]. Ambulance fish bait picker here at [facility] @2pm. F43.10 PTSD, F11.20 Opiate use Disorder, severe, F14.20 Cocaine use Disorder, severe, F10.20 Alcohol use Disorder
[2025-04-29 14:15] VITALS: BP 154/102; PULSE 75; RESP 24; TEMP 36.6; O2SAT 100
== END 2025-04-29 14:22 ==
PROVIDERS: Emergency Provider Emergency Medicine; PCP Family Medicine
DX: T40.1X1A Poisoning by heroin, accidental (unintentional), initial encounter (principal); R53.83 Other fatigue; Y92.9 Unspecified place or not applicable; F32.A Depression, unspecified; F43.10 Post-traumatic stress disorder, unspecified; F20.9 Schizophrenia, unspecified
CPT/HCPCS: 36415; 80053; 80307; 81001; 81003; 81025; 85025; 93005; 99285; S9485

== ENCOUNTER → 2025-04-29 07:45 | Outpatient (BNV) | payer OTHER, SELFPAY | PROVIDERS: Emergency Provider Emergency Medicine; PCP Family Medicine; Visit Provider Internal Medicine Cardiovascular Disease | DX: Z13.6 Encounter for screening for cardiovascular disorders (principal) | CPT/HCPCS: 93010 ==

== ENCOUNTER 2025-05-16 03:45 | Emergency (ER) | payer OTHER, SELFPAY ==
--- NOTE | 2025-05-16 03:54 | ED.PSYCH ---
HPI - Psych General Chief Complaint: ETOH/Substance Use Stated Complaint: Heroin use Time Seen by Provider: 05/16/25 03:48 Source: patient and EMS Mode of arrival: EMS Limitations: other History of Present Illness ED Provider: Dr. Daija Jones HPI Narrative: Patient comes to the emergency room via EMS. According to EMS, they were called because bystanders found the patient rolling around in the grass in someone's backyard. When EMS arrived, they reported that the patient's oxygen dropped to the 80s, they did not give Narcan but patient woke up by herself. Patient has been singing and trying to be compliant. Patient denies SI or HI it patient denies any falls or pain anywhere. Related Data Home Medications ?Medication ?Instructions ?Recorded ?Confirmed ibuprofen 200 mg tablet 400 mg PO Q6H PRN Pain 04/28/25 04/28/25 quetiapine 200 mg tablet 200 mg PO BEDTIME 04/28/25 04/28/25 Allergies Allergy/AdvReac Type Severity Reaction Status Date / Time latex (LATEX) Allergy Unknown RASH Verified 05/16/25 04:08 latex Allergy Unknown hives Uncoded 05/16/25 04:08 Review of Systems Review of Systems: Yes Other (Under the influence of drugs versus alcohol) [facility] Past Medical History Medical History PTSD (post-traumatic stress disorder) Schizophrenia IV drug user Social History Social History Household Members: Family Housing: [facility] Do you presently have visiting nurse or other home services: Yes Unable to assess alcohol history related to: Refusing to respond Patient Tobacco Use Status: Refuse Tobacco use screen Substance Use Type: Crack/Cocaine and Marijuana Advance Directives: Yes Advance Directives on File: Yes Advance Directives Date on File: 06/11/24 service: No Physical Exam Exam: Exam: Appearance: Alert. Singing, very talkative, seems to be intoxicated versus under the influence of drugs Eyes: Pupils equal, round and reactive to light. ENT: Pharynx normal. Neck: Normal inspection. Neck supple. No lymph nodes noted. No crepitus CVS: Normal heart rate and rhythm. Pulses normal. Normal S1 and S2 Respiratory: No respiratory distress. Breath sounds normal. No Wheezing. No rales Abdomen: Soft and nontender. No rigidity. No distention. Skin: Skin warm and dry. Normal skin color. Normal skin turgor. Extremities: No lower extremity edema. No Lacerations. No Rash Neuro: Oriented X 3. Moves all extremities, cranial nerves 2 through 12 grossly intact Psych: calm, singing, talkative, under the influence of alcohol versus drugs Vital Signs: Vital Signs: Last Vital Signs Temp 98.3 F 05/17/25 00:46 Pulse 63 05/17/25 00:46 Resp 18 05/17/25 00:46 BP 160/85 H 05/17/25 00:46 Pulse Ox 97 05/17/25 00:46 O2 Del Method Room Air 05/17/25 00:46 BMI result Body Mass Index 26.5 Course Course Course Narrative: Patient denies SI or HI Patient offered p.o. diphenhydramine, Haldol lorazepam Patient is under the influence of drugs versus alcohol Metabolize to freedom Reevaluation(s) Reevaluation #1: Time: 06:27 Date: 05/17/25 Provider: Eliel Browning MD Patient in physician observation for psychiatric/recovery evaluation.? No acute events reported overnight. No current complaints. VS stable.. Will continue to monitor. Medications Administered Discontinued Medications Generic Name Dose Route Start Last Admin Trade Name Freq PRN Reason Stop Dose Admin Diphenhydramine HCl 50 mg 05/16/25 03:53 05/16/25 04:19 Diphenhydramine Hcl 25 Mg Capsule PO 05/16/25 03:54 50 mg ONCE ONE Administration Haloperidol 5 mg 05/16/25 03:53 05/16/25 04:20 Haloperidol 5 Mg Tablet PO 05/16/25 03:54 5 mg ONCE ONE Administration Lorazepam 2 mg 05/16/25 03:53 05/16/25 04:20 Lorazepam 1 Mg Tablet PO 05/16/25 03:54 2 mg ONCE ONE Administration Medical Decision Making Medical Decision Making [facility] Narrative: At this time, 06:22 of 05/17/2025, patient is awake, alert and oriented x3. Able to have a coherent conversation, The patient states that she feels much better. Patient does not want to talk to the care team. Patient would like to be discharged home. Differential Diagnosis Differential Diagnoses: The differential diagnosis associated with the presentation includes (Alcohol intoxication versus polysubstance abuse) Admission/Observation Consideration of admission/observation: Escalation of care including admission/observation considered (Patient is not SI, no HI, metabolize to freedom) Critical Care Time Critical Care Time Critical Care Time: Yes Total Critical Care Time: 60 Attestation: I have personally provided critical care time. Time includes review of lab data, radiology results, discussion with consultants, and monitoring for potential decompensation. Intervention performed as documented. Discharge Plan Discharge Clinical Impression: Polysubstance abuse, Acute delirium Patient Disposition: Home, Self-Care Instructions: Acute Delirium (ED) Additional Instructions: Please follow-up with your primary care physician tomorrow. If you have any worsening or new symptoms, please return to the emergency room or call 911 Prescriptions: No Action quetiapine 200 mg tablet 200 mg PO BEDTIME ibuprofen 200 mg Tablet 400 mg PO Q6H PRN (Reason: Pain) Print Language: Montenegrin
[2025-05-16 04:01] VITALS: BP 133/72; BP 136/60; PULSE 120; PULSE 127; RESP 18; TEMP 36.7; O2SAT 92; O2SAT 96; BMI 26.5
[2025-05-16 06:00] VITALS: RESP 16
[2025-05-16 08:00] VITALS: RESP 20
[2025-05-16 12:24] VITALS: BP 135/82; PULSE 63; RESP 18; TEMP 36.2; O2SAT 98
--- NOTE | 2025-05-16 12:55 | PC.NURSE ---
Addendum entered by Kalie Mccain RN 05/16/25 12:56: Pt is a 35 yo female with hx of Schizophrenia, PTSD, substance abuse who presents with after being found rolling around on someones grass and noted to be hypoxic in the 80's. Narcan given by EMS with good effect. Patient sleepy but arrousable to touch. Lungs clear bilat. Respirations even and non-labored. Abdomen soft, non-tender with positive bowel sounds. Positive pedal pulses with no edema noted. Original Note: Medical History PTSD (post-traumatic stress disorder) Schizophrenia IV drug user
[2025-05-16 16:20] VITALS: BP 134/63; PULSE 67; RESP 16; TEMP 36.4; O2SAT 98
[2025-05-16 20:58] VITALS: BP 136/65; PULSE 63; RESP 16; TEMP 36.6; O2SAT 95
[2025-05-17 00:46] VITALS: BP 160/85; PULSE 63; RESP 18; TEMP 36.8; O2SAT 97
--- NOTE | 2025-05-17 04:31 | PC.NURSE ---
pt resting comfortably throughout the night, no apparent distress noted, arouses easily.
--- NOTE | 2025-05-17 06:28 | PC.NURSE ---
pt awake and alert, requesting to go home, do not want any detox or care team services.
[2025-05-17 06:29] VITALS: BP 148/99; PULSE 87; RESP 18; TEMP 36.8; O2SAT 98
[2025-05-17 06:41] VITALS: BP 148/99; PULSE 87; RESP 18; TEMP 36.8; O2SAT 98
== END 2025-05-17 06:45 | disposition home or self-care (01) ==
PROVIDERS: Emergency Provider Emergency Medicine
DX: R41.0 Disorientation, unspecified (principal); F19.10 Other psychoactive substance abuse, uncomplicated
CPT/HCPCS: 99283; 99284

== ENCOUNTER 2025-05-18 19:15 | Emergency (ER) | payer OTHER, SELFPAY ==
[2025-05-18 19:51] VITALS: BP 158/78; PULSE 130; O2SAT 93
[2025-05-18 20:02] VITALS: BMI 25.8
[2025-05-18 20:06] VITALS: BP 131/52; PULSE 89; RESP 16; TEMP 36.6; O2SAT 95
--- NOTE | 2025-05-18 20:32 | MHC.EDTECH ---
Did overnight cashier in family room. Pts belongings are in the [place] shelf 1
--- NOTE | 2025-05-18 21:18 | ED_ITS ---
HPI - Ear Problem General Chief complaint: Ear Problems Stated complaint: pt did crack. -ems Time Seen by Provider: 05/18/25 21:01 Source: patient Mode of arrival: ambulatory Limitations: no limitations History of Present Illness ED Provider: Dr. Lashonda Oseguera HPI Narrative: 35-year-old female with a history of polysubstance use disorder presenting with right ear pain and drainage ongoing for the last several days. Admits that she has been prescribed antibiotic drops in the past and has been using them but then upon clarification, it seems that she may be using drops that help with ear wax. No reported fever. She does have some pain in her jaw and with chewing. No swelling in the face. No reported fever. Remote history of IV drug use, has not used IV drugs in at least 1 year. Denies chest pain, difficulty breathing, throat swelling, nausea or vomiting, abdominal pain or sore throat, known sick contacts or recent travel. Related Data Home Medications ?Medication ?Instructions ?Recorded ?Confirmed ibuprofen 200 mg tablet 400 mg PO Q6H PRN Pain 04/2804/28/25 quetiapine 200 mg tablet 200 mg PO BEDTIME 04/28/25 0 04/28/25 Previous Rx's ?Medication ?Instructions ?Recorded amoxicillin 875 mg-potassium 1 tab PO BID 10 days #20 tabs 05/18/25 clavulanate 125 mg tablet buqeegww-wuhrmuzox-jfmufkdsh 3.5 4 drp otic (ear) righ t Q6H 7 days 05/18/25 mg/mL-10,000 unit/mL-1 % ear #10 mL solution Allergies Allergy/AdvReac Type Severity Reaction Status Date / Time latex (LATEX) Allergy Unknown RASH Verified 05/18/25 20:03 Review of Systems Review of Systems: as per HPI, full review of systems performed and negative but for the above mentioned pertinent positives and negatives. [facility] Past Medical History Attestation statement: The following information was validated with the patient. [facility] Narrative: Remote history of IVDA, current crack cocaine use, schizophrenia Source: old records reviewed and nursing notes reviewed Medical History PTSD (post-traumatic stress disorder) Schizophrenia IV drug user Social History Social History Household Members: Family Housing: Condominium Do you presently have visiting nurse or other home services: Yes Unable to assess alcohol history related to: Refusing to respond Patient Tobacco Use Status: Refuse Tobacco use screen Smoked in Last 30 Days: Yes Use of substances other than those prescribed or required for medical reasons: Yes Substance Use Type: Crack/Cocaine Advance Directives: Yes Advance Directives on File: Yes Advance Directives Date on File: 06/11/24 service: No Physical Exam Exam: Exam: GENERAL: Unkempt, no acute distress. SKIN: Normal skin color for ethnicity, warm, dry, no rashes noted. HEENT: Normocephalic, atraumatic, no stridor, posterior oropharynx nonerythematous, poor king salmon dentition, EOMI, unable to visualize right TM secondary to pus drainage in the ear, tenderness to palpation overlying the mas toid and tragus, left TM is clear. NECK: Soft, supple, full ROM, midline structures nontender, no step-offs, no deformities, no lymphadenopathy. CHEST: Heart regular rate and rhythm, no murmurs, symmetric chest rise and fall. PULMONARY: Clear to auscultation bilaterally, no labored breathing, no wheezes/rhales/ rhonchi. ABDOMINAL: Soft, nondistended, nontender, positive bowel sounds in all quadran ts. : Deferred. MUSCULOSKELETAL: Normal tone, full range of motion, no deformities, no peripheral edema. NEURO: Alert and oriented x3, CN II through XII intact, equal strength and sensation bilateral upper and lower extremities, no focal neurologic deficits. PSYCHIATRIC: Flat affect, poor eye contact, withdrawn Vital Signs: Vital Signs: Last Vital Signs Temp 97.9 F 05/18/25 21:45 Pulse 89 05/18/25 21:45 Resp 16 05/18/25 21:45 BP 131/52 L 05/18/25 21:45 Pulse Ox 95 05/18/25 21:45 O2 Del Method Room Air 05/18/25 21:45 BMI result Body Mass Index 25.8 Medications Administered Discontinued Medications Generic Name Dose Route Start Last Admin Trade Name Freq PRN Reason Stop Dose Admin Amoxicillin/Clavulanate Potassium 875 mg 05/18/25 21:16 05/18/25 21:32 Amoxicillin/Potassium Clav 875 Mg Tablet PO 05/18/25 21:17 875 mg ONCE ONE Administration Ibuprofen 600 mg 05/18/25 21:21 05/18/25 21:32 Ibuprofen 600 Mg Tablet PO 05/18/25 21:22 600 mg ONCE ONE Administration Neomycin/Polymyxin/Hydrocortisone 4 drop 05/18/25 21:16 05/18/25 21:31 Neomycin/Polymyxin/Hc Otic Mela Bottle EAR-RIGHT 05/18/25 21:17 4 drop ONCE ONE Administration Medical Decision Making Medical Decision Making MDM Narrative: Patient presents with a chief complaint of ear pain. Differential diagnosis includes URI, otitis media, otitis externa, TM perforation, mastoiditis, neuropathic pain, among many others. Patient with tenderness overlying the mastoid. Clinically she appears well, nontoxic however, given her history of drug use and tenderness in this area, I will treat as mastoiditis. Patient given polymyxin for swimmer's ear, Augmentin for mastoiditis. She is afebrile, nontoxic in stable for discharge. Discussed importance of use of the drops as well as her oral antibiotic. She understands and agrees with plan for discharge. Discharged home in stable condition. Differential Diagnosis Differential Diagnoses: The differential diagnosis associated with the presentation includes (As above) Admission/Observation Consideration of admission/observation: Escalation of care including admission/observation considered External Record Review External record reviewed: Inpatient record Prescription Management I considered prescription management with: Antibiotic Chronic Conditions Patient?s care impacted by: Other (Schizophrenia, PTSD, polysubstance use) Social Determinants Patient?s care significantly limited by Social Determinants of Health including: Alcoholism and drug addiction in family and Problems related to primary support group Discharge Plan Discharge Clinical Impression: Otitis externa, Mastoiditis of right side Patient Disposition: Home, Self-Care Instructions: Swimmer's Ear (ED), Mastoiditis (ED) Additional Instructions: Take your antibiotic as prescribed until the course is completed. Do not stop this medication early if you start to feel better. Return to the ER with any new or worsening symptoms including: Fevers greater than 100?, worsening pain despite antibiotics, inability to tolerate your antibiotic, any new symptom that concerns you. Call 911 with any medical emergency. Prescriptions: New amoxicillin-pot clavulanate 875-125 mg tablet 1 tab PO BID 10 Days Qty: 20 0RF vmehiegk-amznjqrbk-OI 3.5-10,000-1 mg/mL-unit/mL-% solution 4 drp otic (ear) right Q6H 7 Days Qty: 10 0RF No Action quetiapine 200 mg tablet 200 mg PO BEDTIME ibuprofen 200 mg Tablet 400 mg PO Q6H PRN (Reason: Pain) Interventions: ED Discharge Assessment Last Done: 05/18/25 21:45 Discharge Date/Time: 05/18/25 21:50 Print Language: Chilean
[2025-05-18] MEDS: NeoMYCIN/Polymyxin/HC Otic Sol BOTTLE 4 DROP EAR-RIGHT (21:31)
[2025-05-18 21:45] VITALS: BP 131/52; PULSE 89; RESP 16; TEMP 36.6; O2SAT 95
== END 2025-05-18 21:50 | disposition home or self-care (01) ==
PROVIDERS: Emergency Provider Emergency Medicine; PCP Family Medicine
DX: H70.91 Unspecified mastoiditis, right ear (principal); H60.91 Unspecified otitis externa, right ear; H92.01 Otalgia, right ear; F14.90 Cocaine use, unspecified, uncomplicated; Z79.899 Other long term (current) drug therapy
CPT/HCPCS: 99283

== ENCOUNTER 2025-06-09 17:41 | Emergency (ER) | payer OTHER, SELFPAY ==
[2025-06-09 17:58] VITALS: BP 136/69; BP 173/95; PULSE 80; PULSE 94; RESP 16; TEMP 36.8; O2SAT 94; O2SAT 97; BMI 24.5
--- NOTE | 2025-06-09 18:17 | PC.NURSE ---
pt biba s/p suspected overdose on unknown substance/being found in an alleyway unresponsive. PD administered 2 rounds of 4mg narcan IN w/ good effect. upon EMS arrival, pt responsive to verbal stimuli. upon ED arrival, pt remains responsive to verbal stimuli but somnolent. pt changed over by security - 2 bags placed on [place] shelf #8. pt placed in ligature free attire for safety precautions. vss and up to date. nsr on the awake overnight monitor. pt maintaining airway independently w/o difficulty. no sob/wob noted. respirations even/unlabored. plan of care ongoing. call agee placed within reach.
--- OUTSIDE RECORDS SUMMARY | 2025-06-09 18:19 | XMS_ITS | Encounter Summary ---
Author Organization [facility] Address [address] [place] [phone] Phone Care Team Providers Care Software Database Architect Name Role Phone Unavailable Primary Care Provider Unavailabl e Encounter Details Date Type Department Care Team (Late st Contact Info) Description 08/10/2017 Conversion Encounter [facility] - [address] [id number] Social History Tobacco Use Types Packs/Day Years [...]
--- OUTSIDE RECORDS SUMMARY | 2025-06-09 18:19 | XMS_ITS | Clinical Summary ---
Author Organization [facility] Address [address] [place] [phone] Phone Care Team Providers Care Suction Plate Roller Hand Name Role Phone Unavailable Primary Care Provider [...] of 2 - 13+ 2-dose series) 2003 COVID-19 Vaccine ( - 2023- season) 2024 Influenza Vaccines (#1) 2025 HIB Vaccines Completed 09/07/1993, 07/11, 1990, Additional [...]
--- OUTSIDE RECORDS SUMMARY | 2025-06-09 18:19 | XMS_ITS | Clinical Summary ---
Author Organization [employer] Address [address] [place] [address] Care Team Providers Care Power Generation Equipment Repairer Name Role Phone Unavailable Primary Care Provider [...] patient's age to complete [place] [id number] [facility] ([facility]) [place] [id number] [place] [id number]
[2025-06-09 20:31] VITALS: BP 153/93; PULSE 84; RESP 22; O2SAT 98
--- NOTE | 2025-06-09 20:57 | ED.GENADULT ---
HPI - General Adult General Chief complaint: Overdose Stated complaint: Found unconscious, narcan given, heroine use Time Seen by Provider: 06/09/25 20:03 Source: patient Limitations: no limitations History of Present Illness ED Provider: Norma Bryant PA-C HPI narrative: 35-year-old female with a history of schizophrenia, PTSD, opiate use disorder presents after overdose. Patient was found by police unresponsive, she was administered 2 doses of intranasal Narcan. She became arousable to verbal stimuli. The patient is declining detox and recovery team consult. Denies SI or HI. Related Data Home Medications ?Medication ?Instructions ?Recorded ?Confirmed ibuprofen 200 mg tablet 400 mg PO Q6H PRN Pain 04/28/25 04/28/25 quetiapine 200 mg tablet 200 mg PO BEDTIME 04/28/25 04/28/25 Previous Rx's ?Medication ?Instructions ?Recorded amoxicillin 875 mg-potassium 1 tab PO BID 10 days #20 tabs 05/18/25 clavulanate 125 mg tablet qkolkanm-xslmhixti-kivfkbixf 3.5 4 drp otic (ear) right Q6H 7 days 05/18/25 mg/mL-10,000 unit/mL-1 % ear #10 mL solution Allergies Allergy/AdvReac Type Severity Reaction Status Date / Time latex (LATEX) Allergy Unknown RASH Verified 06/09/25 17:59 Review of Systems Review of Systems: Unable to obtain as the patient is uncooperative Yes all other systems are reviewed and are negative [facility] Past Medical History Attestation statement: The following information was validated with the patient. Medical History PTSD (post-traumatic stress disorder) Schizophrenia IV drug user Social History Social History Household Members: Family Housing: Condominium Do you presently have visiting nurse or other home services: Yes Unable to assess alcohol history related to: Refusing to respond Patient Tobacco Use Status: Refuse Tobacco use screen Substance Use Type: Crack/Cocaine Advance Directives: Yes Advance Directives on File: Yes Advance Directives Date on File: 06/11/24 Do you have a plan to hurt others: No Plan service: No Physical Exam ED Vital Signs: Vital Signs - 24 hr 06/10/25 00:00 06/10/25 05:11 06/10/25 07:43 Temperature 97.8 F 98.0 F Pulse Rate 62 56 75 Respiratory Rate 14 11 L 18 Blood Pressure 135/88 151/94 H 142/58 H Pulse Oximetry 97 98 98 Oxygen Delivery Method Room Air Room Air Room Air 06/10/25 07:51 Temperature 98.0 F Pulse Rate 75 Respiratory Rate 18 Blood Pressure 142/58 H Pulse Oximetry 98 Oxygen Delivery Method Room Air BMI result Body Mass Index 24.5 Const Other: Sleeping, easily woken with verbal stimuli, appears older than stated age Orientation/consciousness: patient oriented x3 Resp Effort & Inspection: normal respiratory effort Cardio Other: Normal peripheral perfusion Skin Other: Warm dry no rash Neuro General: patient oriented x3, no focal motor deficits and CN's II-XI intact bilaterally Psych Other: Uncooperative, hostile at times Course Reevaluation(s) Reevaluation #1: Time: 04:30 Date: 06/10/25 Provider: JAM Duenas Patient in physician observation for psychiatric evaluation.? No acute events reported overnight. No current complaints. VS stable.? Patient refused SUDE and detox. Will continue to monitor. Reevaluation #2: Time: 07:34 Date: 06/10/25 Provider: Belgica Holt DO Physician observation ended at 734am. Patient is awake and clinically sober she is stable for DC. refuses all services. Medications Administered Discontinued Medications Generic Name Dose Route Start Last Admin Trade Name Freq PRN Reason Stop Dose Admin Naloxone HCl 8 mg 06/10/25 04:29 06/10/25 07:26 Naloxone Hcl Nasal Take Home 4 Mg [place] NOSTRILALT 06/10/25 04:30 8 mg ONCE ONE Administration Medical Decision Making Medical Decision Making MDM Narrative: 35-year-old female with a history of schizophrenia, PTSD, opiate use disorder presents after overdose. Patient was found by police unresponsive, she was administered 2 doses of intranasal Narcan. She became arousable to verbal stimuli. The patient is declining detox and recovery team consult. Denies SI or HI. Problem: Substance abuse, psychiatric illness History: Per patient which is limited I have considered the following differential diagnoses: Alcohol intoxication, drug intoxication, SI, HI, decompensated psychiatric illness Plan: I did order screening labs including an ethanol and drug screen, the patient declines detox or recovery team consult. She is declining labs. We will continue to monitor her until she is clinically sober. Differential Diagnosis Differential Diagnoses: The differential diagnosis associated with the presentation includes See medical decision-making Admission/Observation Consideration of admission/observation: Escalation of care including admission/observation considered Not applicable Chronic Conditions Patient?s care impacted by: Other (Psychiatric illness, substance abuse) Discharge Plan Discharge Clinical Impression: Opioid use disorder Patient Disposition: Home, Self-Care Instructions: Narcotic Use Disorder (ED) Additional Instructions: You were monitored in the emergency department until you were clinically sober and safe to be discharge. You declined detox and recovery team consult. You can return at any time if you choose to seek help for your opiate use disorder. You have been discharged with intranasal Narcan. Overdose You were seen in our Emergency Department for an overdose today. You received narcan in order to reverse the effects of overdose. Narcan only lasts about 45 min to 1 hour in the system. You may have been given narcan to take home with you today, please keep it near you if you are going to use again, so others can use it if needed.? The number one risk for fatal overdose is using alone? [facility] is a 01/05 hotline where you can be on the phone with someone while you use, and they can call for help if they suspect an overdose: [phone] Things to look out for when you leave include severe vomiting or diarrhea, headaches, muscle cramps, fever, coughing, chest pain, or if you feel so short of breath you cannot walk to the bathroom. Please seek care and return any time for worsening symptoms.? You may have been provided with safer injection?items, please take time to take care of YOU and your health. Use new supplies whenever possible to lessen the chances of infections and other illnesses.? If you need more supplies, please go [facility],? [address], [place] you can call or text to coordinate delivery of safer supplies. If you decide you want to stop or cut down on how much you?re using, please call the numbers on the list provided to you or you can come to our outpatient Addiction Treatment office [facility] (M-F 9am-5p) [address], [address] [place], [place]. [phone] Prescriptions: No Action quetiapine 200 mg tablet 200 mg PO BEDTIME ibuprofen 200 mg Tablet 400 mg PO Q6H PRN (Reason: Pain) amoxicillin-pot clavulanate 875-125 mg tablet 1 tab PO BID 10 Days Qty: 20 0RF drwlrjtb-mvkojqyfg-EX 3.5-10,000-1 mg/mL-unit/mL-% solution 4 drp otic (ear) right Q6H 7 Days Qty: 10 0RF Interventions: ED Discharge Assessment Last Done: 06/10/25 07:51 Discharge Date/Time: 06/10/25 08:07 Print Language: Turkish
--- NOTE | 2025-06-09 21:44 | MHC.EDTECH ---
pt refusing blood work and urine specimen at this time
--- NOTE | 2025-06-09 21:48 | MHC.EDTECH ---
patient refused labs..nurse aware
[2025-06-09 22:08] VITALS: BP 144/89; PULSE 80; RESP 16; TEMP 36.4; O2SAT 97
[2025-06-10] VITALS: BP 135/88; PULSE 62; RESP 14; O2SAT 97
[2025-06-10 05:11] VITALS: BP 151/94; PULSE 56; RESP 11; TEMP 36.6; O2SAT 98
[2025-06-10] MEDS: Naloxone HCl Nasal TAKE HOME 4 MG SPRAY 8 MG NOSTRILALT (07:26)
[2025-06-10 07:43] VITALS: BP 142/58; PULSE 75; RESP 18; TEMP 36.7; O2SAT 98
[2025-06-10 07:51] VITALS: BP 142/58; PULSE 75; RESP 18; TEMP 36.7; O2SAT 98
== END 2025-06-10 08:07 | disposition home or self-care (01) ==
PROVIDERS: Emergency Provider Emergency Medicine
DX: F11.90 Opioid use, unspecified, uncomplicated (principal); T65.91XA Toxic effect of unspecified substance, accidental (unintentional), initial encounter; R40.4 Transient alteration of awareness; Y92.9 Unspecified place or not applicable; F43.10 Post-traumatic stress disorder, unspecified; F20.9 Schizophrenia, unspecified
CPT/HCPCS: 99285

== ENCOUNTER 2025-06-16 17:46 | Emergency (ER) | payer OTHER, SELFPAY ==
[2025-06-16 18:20] VITALS: BP 126/64; BP 150/86; PULSE 96; PULSE 97; RESP 16; TEMP 37.2; O2SAT 95; BMI 25.8
--- NOTE | 2025-06-16 18:29 | ED_ITS ---
HPI - Psych General Chief Complaint: ETOH/Substance Use Stated Complaint: Unk drug use Time Seen by Provider: 06/16/25 18:18 History of Present Illness HPI Narrative: Patient is a 35-year-old female with a history of polysubstance abuse. History of PTSD history of schizophrenia presented extremely agitated admitted to to using drugs. Unable to get details. Patient not redirectable. No Narcan was given. Related Data Home Medications ?Medication ?Instructions ?Recorded ?Confirmed ibuprofen 200 mg tablet 400 mg PO Q6H PRN Pain 04/2804/28/25 quetiapine 200 mg tablet 200 mg PO BEDTIME 04/28/25 0 04/28/25 Previous Rx's ?Medication ?Instructions ?Recorded amoxicillin 875 mg-potassium 1 tab PO BID 10 days #20 tabs 05/18/25 clavulanate 125 mg tablet ksbwzrdt-unpsbfhlm-pbgtknblb 3.5 4 drp otic (ear) righ t Q6H 7 days 05/18/25 mg/mL-10,000 unit/mL-1 % ear #10 mL solution Allergies Allergy/AdvReac Type Severity Reaction Status Date / Time latex (LATEX) Allergy Unknown RASH Verified 06/16/25 19:17 Review of Systems Review of Systems: Unable to obtain review of system [facility] Past Medical History Attestation statement: The following information was validated with the patient. Medical History PTSD (post-traumatic stress disorder) Schizophrenia IV drug user Social History Social History Household Members: [facility] Do you presently have visiting nurse or other home services: Yes Unable to assess alcohol history related to: Refusing to respond Patient Tobacco Use Status: Refuse Tobacco use screen Substance Use Type: Crack/Cocaine Advance Directives: Yes Advance Directives on File: Yes Advance Directives Date on File: 06/11/24 service: No Physical Exam Exam: Exam: Extremely agitated restless Eyes: Pupils equal, round and reactive to light. ENT: Pharynx normal. Neck: Normal inspection. Neck supple. No lymph nodes noted. No crepitus CVS: Normal heart rate and rhythm. Pulses normal. Normal S1 and S2 Respiratory: No respiratory distress. Breath sounds normal. No Wheezing. No rales Abdomen: Soft and nontender. No rigidity. No distention. good BS x4 Skin: Skin warm and dry. Normal skin color. Normal skin turgor. Extremities: No lower extremity edema. Neurovascular intact to all extremities. No Lacerations. No Rash Neuro: Not responsive to command standing bending down moving all around agitated. Not redirectable. Cranial nerves grossly intact Vital Signs: Vital Signs: Last Vital Signs Temp 98.1 F 06/16/25 21:35 Pulse 75 06/16/25 21:35 Resp 16 06/16/25 21:35 BP 141/81 H 06/16/25 21:35 Pulse Ox 98 06/16/25 21:35 O2 Del Method Room Air 06/16/25 21:35 BMI result Body Mass Index 25.8 Medications Administered Discontinued Medications Generic Name Dose Route Start Last Admin Trade Name Tomaszq PRN Reason Stop Dose Admin Diphenhydramine HCl 50 mg 06/16/25 18:18 06/16/25 18:36 Diphenhydramine Hcl 50 Mg/Ml Vial IM 06/16/25 18:19 50 mg ONCE ONE Administration Haloperidol Lactate 5 mg 06/16/25 18:18 06/16/25 18:36 Haloperidol Lactate 5 Mg/Ml Vial IM 06/16/25 18:19 5 mg ONCE ONE Administration Midazolam HCl 2 mg 06/16/25 18:18 06/16/25 18:36 Midazolam Hcl 2 Mg/2 Ml Vial IM 06/16/25 18:19 2 mg ONCE ONE Administration Medical Decision Making Medical Decision Making [facility] Narrative: Unable to deescalate the situation patient was given Haldol Versed and Benadryl. Fell asleep. Monitor in the emergency department for about 6 hours. Patient now awake alert. Was able to eat a full breakfast admits to using heroin and po lysubstance abuse. Then got agitated. Has a history of the same in the past. Patient to be discharged home. No need for additional medication no need for additional labs. Patient did not want detox. Differential Diagnosis Differential Diagnoses: The differential diagnosis associated with the presentation includes Polysubstance abuse External Record Review External record reviewed: Office record (Previous addiction medicine note reviewed) Previous visit notes reviewed Chronic Conditions Polysubstance abuse Social Determinants Patient?s care significantly limited by Social Determinants of Health including: Alcoholism and drug addiction in family, Problems related to primary support group, Unemployment, Problems related to employment and Other Social Determinant of Health Critical Care Time Critical Care Time Critical Care Time: Yes Total Critical Care Time: 40 Attestation: I have personally provided 40 minutes of critical care time exclusive of time spent on separately billable procedures. ?Time includes review of lab data, radiology results, discussion with consultants, and monitoring for potential decompensation. ?Interventions were performed as documented above Discharge Plan Discharge Clinical Impression: Drug overdose, Opioid use disorder Patient Disposition: Home, Self-Care Instructions: Adult Overdose (ED), Narcotic Use Disorder (ED), Opioid Use Disorder (ED) Prescriptions: No Action quetiapine 200 mg tablet 200 mg PO BEDTIME ibuprofen 200 mg Tablet 400 mg PO Q6H PRN (Reason: Pain) amoxicillin-pot clavulanate 875-125 mg tablet 1 tab PO BID 10 Days Qty: 20 0RF ximjbmcs-mzbluuhxx-HB 3.5-10,000-1 mg/mL-unit/mL-% solution 4 drp otic (ear) right Q6H 7 Days Qty: 10 0RF Referrals: [facility] [Physician, Medical] - 06/20/25 Referral Note: Please stop using recreational drugs and go to detox Print Language: Indian
--- OUTSIDE RECORDS SUMMARY | 2025-06-16 19:37 | XMS_ITS | Encounter Summary ---
Author Organization [facility] Address [address] [place] [phone] Phone Care Team Providers Care Oracle Software Engineer Name Role Phone Unavailable Primary Care Provider Unavailabl e Encounter Details Date Type Department Care Team (Late st Contact Info) Description 08/10/2017 Conversion Encounter [facility] - [address] [address] Social History Tobacco Use Types Packs/Day Years [...]
--- OUTSIDE RECORDS SUMMARY | 2025-06-16 19:37 | XMS_ITS | Clinical Summary ---
Author Organization [facility] Address [address] [place] [phone] Phone Care Team Providers Care Pecan Grower Name Role Phone Unavailable Primary Care Provider [...] 13+ 2-dose series) 2003 Influenza Vaccines (#1) 2025 COVID-19 Vaccine ( - season) 2025 HIB Vaccines Completed 09/07/1993, 07/11, 1990, [...]
--- NOTE | 2025-06-16 19:49 | MHC.EDTECH ---
Attempted to do blood work on patient. Pt confused and started moving during the blood draw, Pt unable to follow directions. Unsafe to re-draw at this moment.
[2025-06-16 21:35] VITALS: BP 141/81; PULSE 75; RESP 16; TEMP 36.7; O2SAT 98
[2025-06-17 04:13] VITALS: BP 145/81; PULSE 54; RESP 20; TEMP 36.3; O2SAT 98
--- NOTE | 2025-06-17 05:36 | PC.NURSE ---
Patient had declined to have labs drawn. ordered DC. plan for patient to be DC this morning.
--- NOTE | 2025-06-17 08:53 | PC.NURSE ---
PT DOES NOT WANT HELP FOR SUBSTANCE USE. MD HERNANDEZ
[2025-06-17] MEDS: Naloxone HCl Nasal TAKE HOME 4 MG SPRAY 8 MG NOSTRILALT (09:11)
[2025-06-17 09:35] VITALS: BP 145/81; PULSE 54; RESP 20; TEMP 36.3; O2SAT 98
== END 2025-06-17 09:36 | disposition home or self-care (01) ==
PROVIDERS: Emergency Provider Emergency Medicine Emergency Medical Services
DX: T40.2X1A Poisoning by other opioids, accidental (unintentional), initial encounter (principal); Y92.9 Unspecified place or not applicable; F11.90 Opioid use, unspecified, uncomplicated; F20.9 Schizophrenia, unspecified
CPT/HCPCS: 96372; 99284; J1200; J1630; J2250

== ENCOUNTER 2025-06-23 18:19 | Emergency (ER) | payer OTHER, SELFPAY ==
[2025-06-23] MEDS: OLANZapine 10 MG VIAL IM (18:30)
[2025-06-23 18:37] VITALS: BP 120/69; PULSE 116; RESP 20; TEMP 36.8; O2SAT 94; BMI 25.3
--- NOTE | 2025-06-23 18:41 | ED_ITS ---
HPI - General Adult General Chief complaint: ETOH/Substance Use Stated complaint: crisis Time Seen by Provider: 06/23/25 18:23 History of Present Illness ED Provider: Fe HERRERA narrative: The patient is a 35-year-old female who according to old records has a history of schizophrenia, posttraumatic stress disorder, substance use disorder, and a history of frequent emergency room evaluations for substance related problems. According to police and paramedics the patient was behind a dumpster today behaving in an extremely agitated and bizarre manner. She was yelling and exposing herself and behaving extremely strangely and in an agitated manner. Bystanders called 911 and she was brought to the hospital for evaluation. The patient is not able to say anything coherent. She seems very agitated. Related Data Home Medications ?Medication ?Instructions ?Recorded ?Confirmed ibuprofen 200 mg tablet 400 mg PO Q6H PRN Pain 04/2804/28/25 quetiapine 200 mg tablet 200 mg PO BEDTIME 04/28/25 0 04/28/25 Previous Rx's ?Medication ?Instructions ?Recorded amoxicillin 875 mg-potassium 1 tab PO BID 10 days #20 tabs 05/18/25 clavulanate 125 mg tablet ifwzbsjv-wgxbqifwc-ubsvvddok 3.5 4 drp otic (ear) righ t Q6H 7 days 05/18/25 mg/mL-10,000 unit/mL-1 % ear #10 mL solution Allergies Allergy/AdvReac Type Severity Reaction Status Date / Time latex (LATEX) Allergy Unknown RASH Verified 06/23/25 18:42 Review of Systems 2 Review of Systems: Yes all other systems are reviewed and are negative [facility] Past Medical History Medical History PTSD (post-traumatic stress disorder) Schizophrenia IV drug user Social History Social History Household Members: Family Housing: Condominium Do you presently have visiting nurse or other home services: Yes Unable to assess alcohol history related to: Unable to respond Patient Tobacco Use Status: Refuse Tobacco use screen Substance Use Type: Crack/Cocaine Advance Directives: Yes Advance Directives on File: Yes Advance Directives Date on File: 06/11/24 service: No Physical Exam ED Vital Signs: Vital Signs - 24 hr 06/23/25 18:37 06/23/25 20:18 06/23/25 22:26 Temperature 98.2 F Pulse Rate 116 H 97 87 Respiratory Rate 20 16 18 Blood Pressure 120/69 117/66 127/81 Pulse Oximetry 94 96 Oxygen Delivery Method Room Air Room Air 06/24/25 00:36 06/24/25 05:27 06/24/25 08:20 Temperature 98.9 F Pulse Rate 80 65 72 Respiratory Rate 18 12 18 Blood Pressure 114/60 129/81 144/86 H Pulse Oximetry 100 99 99 Oxygen Delivery Method Room Air Room Air BMI result Body Mass Index 25.3 Const Other: The patient arrived extremely agitated and upset. She seemed inconsolable. I could not have any meaningful interaction with her. She was very agitated. She did not seem in obvious pain or respiratory distress however. HENMT Other: Face was symmetrical. Mucous membranes moist Eyes Other: Pupils were small and equal, conjunctivae clear, extraocular movements intact Neck Neck: Yes normal visual inspection, Yes full ROM, Yes no lymphadenopathy and Yes no meningeal signs Resp Effort & Inspection: normal respiratory effort Auscultation: clear to auscultation bilaterally Cardio Rate: tachycardic Rhythm: regular rhythm Heart sounds: S1 normal heart sound present and S2 normal heart sound present GI Other: The abdomen was soft and nontender Skin Other: Skin was dry and unremarkable Neuro Other: The patient was profoundly agitated but her speech seemed clear, her face seems symmetrical, her eye movements seemed intact, she seemed to have symmetrical tone. No lateralizing findings. General: no meningeal signs Extrem Other: No injuries to the extremities, no deformities note peripheral edema Course Course Course Narrative: Time: 09:01 Date: 06/24/25 Provider: Belgica Holt DO Physician observation ended at 901am. Patient declines SUDE she is awake tolerating PO and alert. Will follow up as an outpatient. Medications Administered Discontinued Medications Generic Name Dose Route Start Last Admin Trade Name Freq PRN Reason Stop Dose Admin Sodium Chloride 1,000 mls @ 999 mls/hr 06/23/25 19:00 06/23/25 21:27 Ns IV 06/23/25 20:00 Infused .Q1H1M MAXWELL Infusion Midazolam HCl 10 mg 06/23/25 18:23 06/23/25 18:30 Midazolam Hcl 5 Mg/Ml Vial IM 06/23/25 18:24 10 mg ONCE ONE Administration Olanzapine 10 mg 06/23/25 18:23 06/23/25 18:30 Olanzapine 10 Mg Vial IM 06/23/25 18:24 10 mg ONCE ONE Administration Medical Decision Making Medical Decision Making [facility] Narrative: The patient is a 35-year-old female with a history of substance use disorder and multiple ER visits for substance use disorder problems. She arrived profoundly agitated. She was sufficiently agitated that she required chemical sedation. She was given IM olanzapine and IM midazolam. She promptly fell asleep and seemed much more comfortable. Her exam seemed reassuring although she was tachycardic. She was therefore given IV fluids. Labs were checked. Her labs are unremarkable. She was observed. Eventually the patient woke up and asked for a turkey sandwich. She admitted to smoking heroin. She will be signed out to the oncoming emergency physician at change of shift. 7:09 AM 06/24/2025 (Dr. Lashonda Oseguera, D.O.) patient continues to rest comfortably. She has woken up a few times and taken a few sips of leslie elier but continues to sleep. We will sign out to oncoming provider pending sober re- evaluation and final disposition. Lab Data 06/23/25 19:19 06/23/25 19:19 Labs: Lab Results 06/23/25 Range/Units 19:19 WBC 8.2 (4.8-10.8) X10*3/uL RBC 3.81 L (4.20-5.50) X10*6/uL Hgb 10.6 L (12.0-16.0) g/dl Hct 31.9 L (37.0-47.0) % MCV 83.7 (80.0-98.0) fL MCH 27.8 (27.0-33.0) pg MCHC 33.2 (31.0-35.0) g/dl RDW 16.1 H (11.0-16.0) % Plt Count 313 (160-400) X10*3/uL MPV 10.3 (9.4-12.3) fL Immature Gran % (Auto) 0.5 H (0.0-0.4) % Neut % (Auto) 74.8 H (45-73) % Lymph % (Auto) 15.8 L (20-40) % [place] % (Auto) 8.1 (2-11) % Eos % (Auto) 0.7 (0-4) % Baso % (Auto) 0.1 (0-2) % Lymph # (Auto) 1.3 (1.2-4.9) X10*3/uL [place] # (Auto) 0.7 (0.1-1.2) X10*3/uL Eos # (Auto) 0.1 (0.0-0.4) X10*3/uL Baso # (Auto) 0.0 (0.0-0.2) X10*3/uL Abs Immat Gran (auto) 0.04 H (0.00-0.03) X10*3/uL Absolute Neuts (auto) 6.1 (2.0-8.3) x10*3/uL Absolute Nucleated RBC 0.000 (0.0-0.012) X10*3/uL Nucleated RBC % (auto) 0.0 (0.0-0.2) /100WBC Sodium 142 (135-145) mmol/L Potassium 4.0 D (3.3-5.1) mmol/L Chloride 109 H (96-108) mmol/L Carbon Dioxide 24 (22-29) mmol/L Anion Gap 13 (12-20) BUN 11 (9-16) mg/dL Creatinine 0.83 (0.5-1.4) mg/dL Estim Creat Clear Calc 92.0 Estimated GFR > 60 Random Glucose 82 (60-115) mg/dL Calcium 8.9 (8.4-10.2) mg/dL Total Bilirubin 0.3 (0.0-1.0) mg/dL Direct Bilirubin 0.1 (0.0-0.5) mg/dL AST 32 H (5-31) U/L ALT 13 (0-31) U/L Alkaline Phosphatase 67 (39-117) U/L Total Protein 7.0 (6.5-8.0) g/dL Albumin 4.1 (3.5-5.0) g/dL Ethyl Alcohol < 10 mg/dL Discharge Plan Discharge Clinical Impression: Acute drug overdose, Substance use disorder Patient Disposition: Home, Self-Care Instructions: Polysubstance Use Disorder (ED), Adult Overdose (ED) Additional Instructions: Overdose You were seen in our Emergency Department for an overdose today. You received narcan in order to reverse the effects of overdose. Narcan only lasts about 45 min to 1 hour in the system. You may have been given narcan to take home with you today, please keep it near you if you are going to use again, so others can use it if needed.? The number one risk for fatal overdose is using alone? [employer] is a / hotline where you can be on the phone with someone while you use, and they can call for help if they suspect an overdose: [phone] Things to look out for when you leave include severe vomiting or diarrhea, headaches, muscle cramps, fever, coughing, chest pain, or if you feel so short of breath you cannot walk to the bathroom. Please seek care and return any time for worsening symptoms.? You may have been provided with safer injection?items, please take time to take care of YOU and your health. Use new supplies whenever possible to lessen the chances of infections and other illnesses.? If you need more supplies, please go [facility],? [address] [place] [address] OR you can call or text to coordinate delivery of safer supplies. If you decide you want to stop or cut down on how much you?re using, please call the numbers on the list provided to you or you can come to our outpatient Addiction Treatment office [facility] (M-F 9am-5p) [address] [place] [address], [address] [phone] Prescriptions: No Action quetiapine 200 mg tablet 200 mg PO BEDTIME ibuprofen 200 mg Tablet 400 mg PO Q6H PRN (Reason: Pain) amoxicillin-pot clavulanate 875-125 mg tablet 1 tab PO BID 10 Days Qty: 20 0RF zvtgdqey-dmunwoeaw-FH 3.5-10,000-1 mg/mL-unit/mL-% solution 4 drp otic (ear) right Q6H 7 Days Qty: 10 0RF Print Language: Anguillan
--- NOTE | 2025-06-23 18:41 | ECG_ITS ---
Test Reason : altered mental status Blood Pressure : */* mmHG Vent. Rate : 118 BPM Atrial Rate : 118 BPM P-R Int : 144 ms QRS Dur : 86 ms QT Int : 350 ms P-R-T Axes : 85 40 61 degrees QTcB Int : 490 ms Sinus tachycardia Possible Left atrial enlargement Borderline ECG When compared with ECG of 29-Apr-2025 08:17, Vent. rate has increased by 49 bpm Nonspecific T wave abnormality, worse in Lateral leads Referred By: Bart Miramontes Electronically Signed By: RACH SHERIDAN
[2025-06-23 19:23] LABS: MANUAL DIFF FLAG NO
[2025-06-23 19:26] LABS: Hematocrit 31.9 % (37.0-47.0); Hemoglobin 10.6 g/dl (12.0-16.0); Imm Gran Abs Auto 0.04 X10*3/uL (0.00-0.03); Imm Gran Pct Auto 0.5 % (0.0-0.4); Lymphocytes Absolute Auto 1.3 X10*3/uL (1.2-4.9); Mean Corpuscular HGB Conc 33.2 g/dl (31.0-35.0); Mean Corpuscular Hemoglobin 27.8 pg (27.0-33.0); Mean Corpuscular Volume 83.7 fL (80.0-98.0); NRBC Abs Auto 0.000 X10*3/uL (0.0-0.012); NRBC Pct Auto 0.0 /100WBC (0.0-0.2); Platelet Count 313 X10*3/uL (160-400); Red Blood Count 3.81 X10*6/uL (4.20-5.50); White Blood Count 8.2 X10*3/uL (4.8-10.8)
--- NOTE | 2025-06-23 19:32 | PC.NURSE ---
Assumed care of pt. pt resting in bed, eyes closed, RR even and unlabored. IV place #20 R-AC, IV fluids hung and running. Pt arousable to painful stimuli during iv placement. no complaints and easily redirected at this time.
[2025-06-23 19:40] LABS: Alanine Aminotransferase 13 U/L (0-31); Albumin Level 4.1 g/dL (3.5-5.0); Alkaline Phosphatase 67 U/L (39-117); Anion Gap 13 (12-20); Aspartate Amino Transferase 32 U/L (5-31); Blood Urea Nitrogen 11 mg/dL (9-16); Calcium 8.9 mg/dL (8.4-10.2); Carbon Dioxide 24 mmol/L (22-29); Chloride 109 mmol/L (96-108); Creatinine Clr Calc Pharmacy 92.0; Estimated Glomerular Filt Rate > 60; Potassium 4.0 mmol/L (3.3-5.1); Sodium 142 mmol/L (135-145); Total Protein 7.0 g/dL (6.5-8.0)
[2025-06-23 20:18] VITALS: BP 117/66; PULSE 97; RESP 16; O2SAT 96
--- OUTSIDE RECORDS SUMMARY | 2025-06-23 21:49 | XMS_ITS | Clinical Summary ---
Author Organization [facility] Address [address] [place] [phone] Phone Care Team Providers Care Shoe Stitcher Name Role Phone Unavailable Primary Care Provider [...]
--- OUTSIDE RECORDS SUMMARY | 2025-06-23 21:49 | XMS_ITS | Encounter Summary ---
Author Organization [facility] Address [address] [place] [phone] Phone Care Team Providers Care .Net Programmer Name Role Phone Unavailable Primary Care Provider Unavailabl e Encounter Details Date Type Department Care Team (Late st Contact Info) Description 08/10/2017 Conversion Encounter [facility] - [address] [address] Social History Tobacco Use Types Packs/Day Years [...]
--- OUTSIDE RECORDS SUMMARY | 2025-06-23 21:49 | XMS_ITS | Clinical Summary ---
Author Organization [employer] Address [address] [facility] [address] [place] [address] Care Team Providers Care Watch Assembly Inspector Name Role Phone Unavailable Primary Care Provider [...] 2020 HPV/Cotest 2020 COVID-19 Vaccine ( season) 2025 10/04/2022, 10/18/2021 Influenza Vaccine (#1) 2025 06/23/2017 [...] complete [place] [id number] [facility] [place] [id number] [place] [id number]
[2025-06-23 22:26] VITALS: BP 127/81; PULSE 87; RESP 18
[2025-06-24 00:36] VITALS: BP 114/60; PULSE 80; RESP 18; O2SAT 100
[2025-06-24 05:27] VITALS: BP 129/81; PULSE 65; RESP 12; TEMP 37.2; O2SAT 99
[2025-06-24 08:20] VITALS: BP 144/86; PULSE 72; RESP 18; O2SAT 99
[2025-06-24 09:35] VITALS: BP 144/86; PULSE 72; RESP 18; TEMP 36.2; O2SAT 99
[2025-06-24] MEDS: Naloxone HCl Nasal TAKE HOME 4 MG SPRAY 8 MG NOSTRILALT (10:44)
[2025-06-24 15:58] VITALS: BP 134/74; PULSE 69; RESP 18; TEMP 36.6; O2SAT 98
--- NOTE | 2025-06-24 16:25 | PC.NURSE ---
pt ready for DC for several hours. when encouraged to DC, pt reported that she wants see recovery team. charge nurse and provider notified, pt moved to POD
[2025-06-24 16:55] LABS: Appearance Urine Cloudy; Glucose Urine UA Negative (Negative); PH 6.0 (5.0-9.0); Specific Gravity - Urine 1.025 (1.005-1.025); UMIC TRIGGER UACC YES
[2025-06-24 16:57] LABS: UACC Culture Trigger YES
[2025-06-24 17:03] LABS: Cannabinoid Screen Urine Not Detected (Not Detect)
--- NOTE | 2025-06-24 18:10 | PC.NURSE ---
Pt sleeping soundly. Unable to arouse enough to answer questions about meds. Chest rise noted. NAD.
--- NOTE | 2025-06-24 20:23 | PC.NURSE ---
Assumed care of patient at 20:00. Patient asleep, RR 16, even chest wall rise and fall noted, no s/s of acute distress noted.
[2025-06-25 06:21] VITALS: BP 151/95; PULSE 72; RESP 15; TEMP 36.8; O2SAT 100
--- NOTE | 2025-06-25 06:21 | PC.NURSE ---
Patient awake, requesting jello and orange juice, provided and tolerated well.
[2025-06-25 08:14] VITALS: BP 151/95; PULSE 72; RESP 15; TEMP 36.8; O2SAT 100
== END 2025-06-25 08:15 | disposition home or self-care (01) ==
PROVIDERS: Emergency Medicine; Emergency Provider Emergency Medicine
DX: T50.901A Poisoning by unspecified drugs, medicaments and biological substances, accidental (unintentional), initial encounter (principal); R45.1 Restlessness and agitation; Y92.9 Unspecified place or not applicable; R11.0 Nausea; R00.0 Tachycardia, unspecified; F14.90 Cocaine use, unspecified, uncomplicated; Z51.81 Encounter for therapeutic drug level monitoring; Z79.899 Other long term (current) drug therapy
CPT/HCPCS: 36415; 80048; 80076; 80307; 81001; 85025; 87086; 93005; 96360; 96361; 96372; 99285; J2250; J2359; S9485

== ENCOUNTER → 2025-06-23 18:41 | Outpatient (BNV) | payer OTHER, SELFPAY | PROVIDERS: Emergency Provider Emergency Medicine; Visit Provider Internal Medicine | DX: R00.0 Tachycardia, unspecified (principal) | CPT/HCPCS: 93010 ==

== ENCOUNTER 2025-07-04 15:14 | Emergency (ER) | payer OTHER, SELFPAY ==
[2025-07-04 15:30] VITALS: BP 160/80; PULSE 118; O2SAT 98
[2025-07-04 15:34] VITALS: BP 147/93; PULSE 91; RESP 16; TEMP 36.6; O2SAT 99; BMI 23.6
--- NOTE | 2025-07-04 15:59 | PC.NURSE ---
Pt alert/oriented on arrival. Denies SI or HI. Declines detox. Agreeable to have staff monitor d/t Narcan admin. sat 100% on room air RR16, belongings checked by security and contraband removed, belongings placed in [place] port by [employer] Rhina.
--- OUTSIDE RECORDS SUMMARY | 2025-07-04 17:09 | XMS_ITS | Clinical Summary ---
Author Organization [facility] Address [address] [place] [phone] Phone Care Team Providers Care Pulpwood Contractor Name Role Phone Unavailable Primary Care Provider [...]
--- OUTSIDE RECORDS SUMMARY | 2025-07-04 17:09 | XMS_ITS | Encounter Summary ---
Author Organization [facility] Address [address] [place] [phone] Phone Care Team Providers Care Storeroom Keeper Name Role Phone Unavailable Primary Care Provider Unavailabl e Encounter Details Date Type Department Care Team (Late st Contact Info) Description 08/10/2017 Conversion Encounter [facility] - [address] [address] Social History Tobacco Use Types Packs/Day Years [...]
--- OUTSIDE RECORDS SUMMARY | 2025-07-04 17:09 | XMS_ITS | Clinical Summary ---
Author Organization [employer] Address [address] [facility] [address] [place] [address] Care Team Providers Care Melt House Drag Operator Name Role Phone Unavailable Primary Care Provider [...] [place] [id number] [facility]) [place] [id number] [place] [id number]
--- NOTE | 2025-07-04 17:33 | ED_ITS ---
HPI - General Adult General Chief complaint: ETOH/Substance Use Stated complaint: drug use, narcan given Time Seen by Provider: 07/04/25 15:59 History of Present Illness HPI narrative: Patient is 35 years old was found on the ground at a store patient was given Narcan by the store tinning equipment tender. Subsequently woke up. Denies any suicidal homicidal ideation there is no complaints currently. Patient from the street. She does not want any detox. Related Data Home Medications ?Medication ?Instructions ?Recorded ?Confirmed ibuprofen 200 mg tablet 400 mg PO Q6H PRN Pain 04/2804/28/25 quetiapine 200 mg tablet 200 mg PO BEDTIME 04/28/25 0 04/28/25 Previous Rx's ?Medication ?Instructions ?Recorded amoxicillin 875 mg-potassium 1 tab PO BID 10 days #20 tabs 05/18/25 clavulanate 125 mg tablet gwgjjpzl-fnhysxtic-zyjthijbk 3.5 4 drp otic (ear) righ t Q6H 7 days 05/18/25 mg/mL-10,000 unit/mL-1 % ear #10 mL solution Allergies Allergy/AdvReac Type Severity Reaction Status Date / Time latex (LATEX) Allergy Unknown RASH Verified 07/04/25 15:40 Review of Systems Review of Systems: No chest pain or shortness breath no systemic complaints Yes all other systems are reviewed and are negative [facility] Past Medical History Attestation statement: The following information was validated with the patient. Medical History PTSD (post-traumatic stress disorder) Schizophrenia IV drug user Social History Social History Household Members: Family Housing: [facility] Do you presently have visiting nurse or other home services: Yes Alcohol intake: current Alcohol intake frequency: a few times a week Alcohol type: beer, wine and hard liquor Patient Tobacco Use Status: Refuse Tobacco use screen Smoked in Last 30 Days: Yes Substance Use Type: Crack/Cocaine and Heroin Advance Directives: Yes Advance Directives on File: Yes Advance Directives Date on File: 06/11/24 service: No Physical Exam ED Exam Exam: Appearance: Alert. Oriented X3. No acute distress. Eyes: Pupils equal, round and reactive to light. ENT: Pharynx normal. Neck: Normal inspection. Neck supple. No lymph nodes noted. No crepitus CVS: Normal heart rate and rhythm. Pulses normal. Normal S1 and S2 Respiratory: No respiratory distress. Breath sounds normal. No Wheezing. No rales Abdomen: Soft and nontender. No rigidity. No distention. good BS x4 Skin: Skin warm and dry. Normal skin color. Normal skin turgor. Extremities: No lower extremity edema. Neurovascular intact to all extremities. No Lacerations. No Rash Neuro: Oriented X 3. No motor deficit. No sensory deficit. Moving all extermities. No slurred speech Vital Signs: Vital Signs - 24 hr 07/04/25 15:34 Temperature 98 F Pulse Rate 91 Respiratory Rate 16 Blood Pressure 147/93 H Pulse Oximetry 99 Oxygen Delivery Method Room Air BMI result Body Mass Index 23.6 Medical Decision Making Medical Decision Making [facility] Narrative: Patient monitored in the emergency department for over 2 hours. Was able to eat. Did not want detox was offered Narcan. Patient to be discharged not suicidal not homicidal Differential Diagnosis Differential Diagnoses: The differential diagnosis associated with the presentation includes Polysubstance abuse Admission/Observation Consideration of admission/observation: Escalation of care including admission/observation considered Lab Data [facility] Lab Attestation statement: I reviewed the patient's lab results. Chronic Conditions Polysubstance abuse Social Determinants Patient?s care significantly limited by Social Determinants of Health including: Inadequate housing, Low income, Alcoholism and drug addiction in family, Problems related to primary support group and Unemployment Discharge Plan Discharge Clinical Impression: Opioid use disorder Drug overdose Qualifiers: Encounter type: initial encounter Injury intent: accidental or unintentional Qualified Code(s): T50.901A - Poisoning by unspecified drugs, medicaments and biological substances, accidental (unintentional), initial encounter Patient Disposition: Home, Self-Care Instructions: Adult Overdose (ED) Prescriptions: No Action quetiapine 200 mg tablet 200 mg PO BEDTIME ibuprofen 200 mg Tablet 400 mg PO Q6H PRN (Reason: Pain) amoxicillin-pot clavulanate 875-125 mg tablet 1 tab PO BID 10 Days Qty: 20 0RF ijokvpwm-fagusxqpa-RP 3.5-10,000-1 mg/mL-unit/mL-% solution 4 drp otic (ear) right Q6H 7 Days Qty: 10 0RF Referrals: Physician,Unknown J [Primary Care Provider, Medical] Referral Note: Please go to detox when you are ready Print Language: French
[2025-07-04] MEDS: Naloxone HCl Nasal TAKE HOME 4 MG SPRAY 8 MG NOSTRILALT (18:11)
[2025-07-04 18:55] VITALS: BP 134/73; PULSE 89; RESP 14; TEMP 36.7; O2SAT 97
[2025-07-04 18:56] VITALS: BP 134/73; PULSE 89; RESP 14; TEMP 36.7; O2SAT 97
== END 2025-07-04 19:06 | disposition home or self-care (01) ==
PROVIDERS: Emergency Provider Emergency Medicine Emergency Medical Services
DX: F11.90 Opioid use, unspecified, uncomplicated (principal); T50.901A Poisoning by unspecified drugs, medicaments and biological substances, accidental (unintentional), initial encounter; F43.10 Post-traumatic stress disorder, unspecified; X58.XXXA Exposure to other specified factors, initial encounter; Y93.9 Activity, unspecified; Y92.9 Unspecified place or not applicable; Y99.9 Unspecified external cause status; F20.9 Schizophrenia, unspecified
CPT/HCPCS: 99284